=== PATIENT | female | born 1930 | race African-American/Black ===

== ENCOUNTER → 2017-02-05 | Outpatient (CLI) | payer MEDICARE, MEDICAID ==
[~2017-02-05] MED LIST: AMLO5TAB88 PO; APIX5TAB PO; ASPI-1035 PO; ATOR20TA65 PO; BENA40TA3 PO; CLOP75TA33 PO; GABA-531 PO; HYDR-4134 PO; HYDR25TA PO; LEVO75TA7 PO; MOMETASONE; POTA20TA82 PO
== END | disposition home or self-care (01) ==
LOC: MAMMO 08:57
PROVIDERS: ATTEND Specialist
DX: Z12.31 Encounter for screening mammogram for malignant neoplasm of breast (principal)
CPT/HCPCS: G0202

== ENCOUNTER → 2017-03-19 | Outpatient (CLI) | payer MEDICARE, MEDICAID ==
[~2017-03-19] MED LIST changes: -ASPI-1035 PO; +ASPI-1159 PO
== END | disposition home or self-care (01) ==
LOC: MAMMO 09:07
PROVIDERS: ATTEND Specialist
DX: R92.8 Other abnormal and inconclusive findings on diagnostic imaging of breast (principal); N63 Unspecified lump in breast
CPT/HCPCS: 76641; G0206

== ENCOUNTER → 2018-02-12 | Outpatient (CLI) | payer MEDICARE, MEDICAID ==
[~2018-02-12] MED LIST changes: +FLUT15.88 NS; +TRIA1TAB94 PO
== END | disposition home or self-care (01) ==
LOC: MAMMO 08:25
PROVIDERS: ATTEND Specialist
DX: Z12.31 Encounter for screening mammogram for malignant neoplasm of breast (principal)
CPT/HCPCS: 77067

== ENCOUNTER 2021-03-04 16:58 | Inpatient (IN) | payer MEDICARE, MEDICAID ==
[~2021-03-04] VITALS: Ht 165.1 cm; Wt 67.2 kg
[~2021-03-04 16:58] MED LIST changes: -ASPI-1159 PO; +ASPI-1497 PO; -BENA40TA3 PO; +BENA40TA9 PO; +FLUT15.844 NS; -FLUT15.88 NS; -GABA-531 PO; +GABA-532 PO
[2021-03-04 19:08] LABS: CHLORIDE 111 mEq/L (98-107)
[2021-03-04 19:54] LABS: MEAN CORPUSCULAR HEMOGLOBIN 20.6 pg (28.0-32.0); MEAN CORPUSCULAR VOLUME 67.2 fL (81.0-99.0); MEAN PLATELET VOLUME 6.9 fl (7.4-10.4); PLATELET 194 x1000/uL (130-400); RED BLOOD CELL COUNT 2.34 mill/uL (4.2-5.4)
[2021-03-04 20:00] LABS: HEMATOCRIT. 15.7 % (36.0-48.0); HEMOGLOBIN. 4.8 g/dL (12.0-16.0)
[2021-03-04] MEDS ORDERED: PANTOPRAZOLE SODIUM 40 MG/VIAL IV NR (20:30)
[2021-03-04 20:34] LABS: PLATELET ESTIMATE NORMAL
[2021-03-04] MEDS ORDERED: PANTOPRAZOLE 80 MG in SODIUM CHLORIDE 0.9% 100 ML IV SCH (21:00)
[2021-03-04] MEDS ORDERED: IPRATROPIUM/ALBUTEROL 0.5-3(2.5)MG/3ML NEB NEB PRN (22:30)
[2021-03-04] MEDS ORDERED: DEXTROSE 50% WATER 50ML SYRINGE IV PRN (22:30)
[2021-03-04] MEDS ORDERED: MAGNESIUM/ALUMINUM HYDROXIDE/SIMETHICONE 30ML UDC PO PRN (22:30)
[2021-03-04] MEDS ORDERED: CLONIDINE 0.1MG TABLET PO PRN (22:30)
[2021-03-04] MEDS ORDERED: ONDANSETRON HCL 4MG/2ML INJ IV PRN (22:30)
[2021-03-04] MEDS ORDERED: ACETAMINOPHEN 325MG TABLET PO PRN ×3 (22:30→22:45)
[2021-03-04] MEDS ORDERED: DOCUSATE SODIUM 100MG CAPSULE PO PRN (22:30)
[2021-03-04] MEDS ORDERED: NITROGLYCERIN 0.4MG TABLET SL SL PRN (22:30)
[2021-03-04] MEDS ORDERED: GUAIFENESIN 200MG/10ML SUGAR FREE UDC PO PRN (22:30)
[2021-03-04] MEDS ORDERED: SODIUM POLYSTYRENE SULFONATE 15 G/60 ML BOT PO SCH (23:00)
[2021-03-04 23:16] LABS: T4 FREE 1.1 ng/dL (0.76-1.46)
[2021-03-04 23:17] LABS: CLARITY URINE CLEAR (CLEAR); COLOR URINE YELLOW (YELLOW); KETONES URINE NEGATIVE (NEGATIVE); LEUKOCYTE ESTERASE URINE TRACE (NEGATIVE); NITRITE URINE NEGATIVE (NEGATIVE); OCCULT BLOOD URINE 1+ (NEGATIVE); PH URINE 7.5 (4.5-8.0); PROTEIN URINE NEGATIVE (NEGATIVE); SPECIFIC GRAVITY URINE 1.012 (1.005-1.030); UROBILINOGEN URINE 0.2 E.U./dL (0.2-1.0)
[2021-03-04 23:28] LABS: FOLIC ACID (FOLATE) SERUM 15.6 ng/mL (>5.38)
[2021-03-04 23:36] LABS: *BARBITURATES SCREEN URINE NEGATIVE (NEGATIVE); *COCAINE SCREEN URINE NEGATIVE (NEGATIVE); CANNABINOID URINE SCREEN NEGATIVE (NEGATIVE); OPIATES URINE SCREEN NEGATIVE (NEGATIVE); PHENCYCLIDINE URINE SCREEN NEGATIVE (NEGATIVE)
[2021-03-04 23:37] LABS: *AMPHETAMINES SCREEN URINE NEGATIVE (NEGATIVE); *BENZODIAZEPINES SCREEN URINE NEGATIVE (NEGATIVE); METHADONE URINE SCREEN NEGATIVE (NEGATIVE)
[2021-03-05] VITALS (14 sets, daily range): BP systolic 133–164; BP diastolic 53–91
[2021-03-05] MEDS: DILTIAZEM HCL 60MG TABLET PO SCH ×5 (03:43→23:36)
[2021-03-05] MEDS: DEXT 5%/0.45% NACL 1000ML 1,000 ML IV SCH ×3 (05:10→23:36)
[2021-03-05 06:11] LABS: BASOPHILS % 0.4 % (0.0-2.0); EOSINOPHILS % 1.8 % (0.0-5.0); HEMATOCRIT. 22.1 % (36.0-48.0); LYMPHOCYTES % 23.3 % (20.0-50.0); MEAN CORPUSCULAR HEMOGLOBIN 23.4 pg (28.0-32.0); MEAN CORPUSCULAR VOLUME 73.2 fL (81.0-99.0); MEAN PLATELET VOLUME 8.1 fl (7.4-10.4); MONOCYTES % 6.5 % (2.0-8.0); PLATELET 164 x1000/uL (130-400); RED BLOOD CELL COUNT 3.02 mill/uL (4.2-5.4); RED CELL DISTRIBUTION WIDTH 23.5 % (11.6-14.6)
[2021-03-05 06:15] LABS: CHLORIDE 107 mEq/L (98-107)
[2021-03-05 06:22] LABS: PHOSPHORUS 2.7 mg/dL (2.5-4.9)
[2021-03-05 06:23] LABS: LDL CHOLESTEROL 34 mg/dL (5-100)
[2021-03-05 06:24] LABS: CREATINE KINASE 67 IU/L (26-192); CREATINE KINASE MB FRACTION 1.3 ng/mL (0.5-3.6); HDL CHOLESTEROL 63 mg/dL (40-59)
[2021-03-05] MEDS ORDERED: AMLODIPINE 10MG TABLET PO SCH (09:00)
[2021-03-05] MEDS: INSULIN LISPRO 100 UNITS/ML SUBCUT SCH ×4 (12:00→20:55)
[2021-03-05] MEDS: BLOOD SUGAR DIAGNOSTIC STRIP TEST SCH ×4 (12:00→20:55)
[2021-03-05] MEDS: SORBITOL 70% SOLN 30ML PO NR ×2 (13:48→20:16)
[2021-03-05] MEDS ORDERED: SORBITOL 70% SOLN 30ML PO NR (14:00)
[2021-03-05] MEDS ORDERED: DEXT 5%/0.9% NACL 1,000 ML IV SCH (17:15)
[2021-03-05] MEDS ORDERED: ONDANSETRON HCL 4MG/2ML INJ IV PRN (17:15)
[2021-03-05] MEDS ORDERED: SUCRALFATE 1 G/10 ML UDC PO SCH (17:30)
[2021-03-05] MEDS ORDERED: METOCLOPRAMIDE HCL 10MG/2ML VIAL IV SCH (17:30)
[2021-03-05 17:43] LABS: HEMATOCRIT 28.9 % (36.0-48.0); HEMOGLOBIN 9.7 g/dL (12.0-16.0)
[2021-03-05 17:50] LABS: INR 1.1
[2021-03-05 17:58] LABS: CREATINE KINASE MB FRACTION 1.9 ng/mL (0.5-3.6)
[2021-03-05] MEDS: PANTOPRAZOLE SODIUM 40 MG/VIAL IV SCH (18:43)
[2021-03-05] MEDS: ATORVASTATIN CALCIUM 10MG TABLET PO SCH (20:16)
[2021-03-05] MEDS: ZOLPIDEM TARTRATE 5MG TABLET PO PRN (23:36)
[2021-03-06] VITALS (12 sets, daily range): BP systolic 116–165; BP diastolic 51–71
[2021-03-06] MEDS: DILTIAZEM HCL 60MG TABLET PO SCH ×4 (05:32→23:27)
[2021-03-06 05:57] LABS: INR 1.1; PROTHROMBIN TIME 11.7 sec (9.6-11.0)
[2021-03-06 06:19] LABS: HEMATOCRIT. 34.9 % (36.0-48.0); MEAN CORPUSCULAR HEMOGLOBIN 24.2 pg (28.0-32.0); MEAN CORPUSCULAR VOLUME 76.4 fL (81.0-99.0); MEAN PLATELET VOLUME 8.4 fl (7.4-10.4); PLATELET 188 x1000/uL (130-400); RED BLOOD CELL COUNT 4.57 mill/uL (4.2-5.4); RED CELL DISTRIBUTION WIDTH 22.7 % (11.6-14.6)
[2021-03-06] MEDS: BLOOD SUGAR DIAGNOSTIC STRIP TEST SCH ×4 (07:30→21:00)
[2021-03-06] MEDS: INSULIN LISPRO 100 UNITS/ML SUBCUT SCH ×4 (08:00→21:00)
[2021-03-06] MEDS: PANTOPRAZOLE SODIUM 40 MG/VIAL IV SCH ×2 (08:56→18:44)
[2021-03-06] MEDS: IRON SUCROSE COMPLEX 100 MG/5 ML ML IV SCH (10:58)
[2021-03-06 14:38] LABS: PLATELET ESTIMATE NORMAL
[2021-03-06] MEDS: GABAPENTIN 100MG CAPSULE PO SCH ×2 (16:00→22:12)
[2021-03-06] MEDS ORDERED: MIDAZOLAM HCL 5 MG/5 ML VIAL IV PRN (16:19)
[2021-03-06] MEDS ORDERED: MIDAZOLAM HCL 5 MG/5 ML VIAL ONE (16:25)
[2021-03-06] MEDS ORDERED: FENTANYL CITRATE/PF 50MCG/ML 2ML VIAL ONE (16:26)
[2021-03-06] MEDS ORDERED: NA PHOS,M-B/NA PHOS,DI-BA ENEMA 118ML PR NR (18:00)
[2021-03-06] MEDS ORDERED: SORBITOL 70% SOLN 30ML PO NR (21:00)
[2021-03-06] MEDS: ATORVASTATIN CALCIUM 10MG TABLET PO SCH (22:12)
[2021-03-07] VITALS (12 sets, daily range): BP systolic 104–131; BP diastolic 57–78
[2021-03-07] MEDS: DILTIAZEM HCL 60MG TABLET PO SCH ×3 (05:07→18:41)
[2021-03-07] MEDS: GABAPENTIN 100MG CAPSULE PO SCH ×3 (05:07→21:53)
[2021-03-07] MEDS: BLOOD SUGAR DIAGNOSTIC STRIP TEST SCH ×4 (07:59→21:00)
[2021-03-07] MEDS: INSULIN LISPRO 100 UNITS/ML SUBCUT SCH ×4 (07:59→21:00)
[2021-03-07] MEDS: PANTOPRAZOLE SODIUM 40 MG/VIAL IV SCH ×2 (08:40→18:40)
[2021-03-07] MEDS ORDERED: SORBITOL 70% SOLN 30ML PO NR (10:00)
[2021-03-07] MEDS: IRON SUCROSE COMPLEX 100 MG/5 ML ML IV SCH (10:03)
[2021-03-07 10:38] LABS: HEMATOCRIT. 31.4 % (36.0-48.0); HEMOGLOBIN. 10.2 g/dL (12.0-16.0); MEAN CORPUSCULAR HEMOGLOBIN 24.2 pg (28.0-32.0); MEAN CORPUSCULAR VOLUME 74.3 fL (81.0-99.0); PLATELET 156 x1000/uL (130-400); RED BLOOD CELL COUNT 4.22 mill/uL (4.2-5.4); RED CELL DISTRIBUTION WIDTH 24.4 % (11.6-14.6)
[2021-03-07 11:16] LABS: INR 1.2; PROTHROMBIN TIME 12.4 sec (9.6-11.0)
[2021-03-07] MEDS ORDERED: NA PHOS,M-B/NA PHOS,DI-BA ENEMA 118ML PR NR (12:00)
[2021-03-07] MEDS ORDERED: POTASSIUM CHLORIDE INJ 40 MEQ in DEXT 5% WATER 250 ML IV ONE (13:00)
[2021-03-07 13:34] LABS: NUCLEATED RED BLOOD CELLS 1 /100 WBC; PLATELET ESTIMATE NORMAL
[2021-03-07] MEDS ORDERED: MIDAZOLAM HCL 2 MG/2 ML VIAL IV PRN (16:23)
[2021-03-07] MEDS ORDERED: MIDAZOLAM HCL 5 MG/5 ML VIAL ONE (16:25)
[2021-03-07] MEDS ORDERED: FENTANYL CITRATE/PF 50MCG/ML 2ML VIAL ONE (16:25)
[2021-03-07] MEDS: ATORVASTATIN CALCIUM 10MG TABLET PO SCH (21:53)
[2021-03-08] VITALS (13 sets, daily range): BP systolic 119–135; BP diastolic 56–72
[2021-03-08] MEDS: DILTIAZEM HCL 60MG TABLET PO SCH ×5 (00:26→23:15)
[2021-03-08] MEDS: GABAPENTIN 100MG CAPSULE PO SCH ×3 (06:03→21:31)
[2021-03-08] MEDS: INSULIN LISPRO 100 UNITS/ML SUBCUT SCH ×4 (06:31→21:00)
[2021-03-08] MEDS: BLOOD SUGAR DIAGNOSTIC STRIP TEST SCH ×4 (06:32→21:30)
[2021-03-08] MEDS: PANTOPRAZOLE SODIUM 40 MG/VIAL IV SCH ×2 (08:59→17:14)
[2021-03-08] MEDS: IRON SUCROSE COMPLEX 100 MG/5 ML ML IV SCH (09:00)
[2021-03-08] MEDS: TRAMADOL 50MG TABLET PO PRN ×2 (14:49→20:24)
[2021-03-08] MEDS: DEXT 5%/0.9% NACL 1,000 ML IV SCH (16:46)
[2021-03-08] MEDS: ATORVASTATIN CALCIUM 10MG TABLET PO SCH (20:25)
[2021-03-09] VITALS (12 sets, daily range): BP systolic 111–138; BP diastolic 43–68
[2021-03-09] MEDS: DEXT 5%/0.9% NACL 1,000 ML IV SCH ×2 (04:53→18:55)
[2021-03-09] MEDS: DILTIAZEM HCL 60MG TABLET PO SCH ×3 (05:33→17:47)
[2021-03-09] MEDS: GABAPENTIN 100MG CAPSULE PO SCH ×3 (05:33→22:28)
[2021-03-09 06:13] LABS: HEMATOCRIT. 31.3 % (36.0-48.0); HEMOGLOBIN. 10.3 g/dL (12.0-16.0); MEAN PLATELET VOLUME 9.1 fl (7.4-10.4); PLATELET 134 x1000/uL (130-400); RED BLOOD CELL COUNT 4.12 mill/uL (4.2-5.4)
[2021-03-09] MEDS: BLOOD SUGAR DIAGNOSTIC STRIP TEST SCH ×4 (07:31→20:53)
[2021-03-09] MEDS: INSULIN LISPRO 100 UNITS/ML SUBCUT SCH ×4 (07:32→21:00)
[2021-03-09] MEDS: TRAMADOL 50MG TABLET PO PRN (08:41)
[2021-03-09] MEDS: PANTOPRAZOLE SODIUM 40 MG/VIAL IV SCH ×2 (09:37→17:46)
[2021-03-09] MEDS: IRON SUCROSE COMPLEX 100 MG/5 ML ML IV SCH (09:38)
[2021-03-09] MEDS ORDERED: LEVOFLOXACIN 500MG PREMIX 100 ML IV NR (12:00)
[2021-03-09 12:15] LABS: PLATELET ESTIMATE NORMAL
[2021-03-09] MEDS: METRONIDAZOLE 500 MG PREMIX 100 ML IV SCH ×2 (12:35→20:21)
[2021-03-09] MEDS: ATORVASTATIN CALCIUM 10MG TABLET PO SCH (21:00)
[2021-03-09] MEDS: ZOLPIDEM TARTRATE 5MG TABLET PO PRN (22:28)
[2021-03-10] VITALS (12 sets, daily range): BP systolic 112–136; BP diastolic 41–66
[2021-03-10] MEDS: DILTIAZEM HCL 60MG TABLET PO SCH ×5 (01:12→23:37)
[2021-03-10] MEDS: METRONIDAZOLE 500 MG PREMIX 100 ML IV SCH ×3 (04:02→21:08)
[2021-03-10 06:17] LABS: HEMATOCRIT. 28.2 % (36.0-48.0); HEMOGLOBIN. 9.4 g/dL (12.0-16.0); MEAN CORPUSCULAR HEMOGLOBIN 25.7 pg (28.0-32.0); MEAN CORPUSCULAR VOLUME 77.3 fL (81.0-99.0); MEAN PLATELET VOLUME 9.1 fl (7.4-10.4); PLATELET 108 x1000/uL (130-400); RED BLOOD CELL COUNT 3.64 mill/uL (4.2-5.4); RED CELL DISTRIBUTION WIDTH 26.1 % (11.6-14.6)
[2021-03-10] MEDS: GABAPENTIN 100MG CAPSULE PO SCH ×3 (06:17→21:09)
[2021-03-10] MEDS: BLOOD SUGAR DIAGNOSTIC STRIP TEST SCH ×4 (07:30→21:08)
[2021-03-10] MEDS: INSULIN LISPRO 100 UNITS/ML SUBCUT SCH ×4 (08:00→21:00)
[2021-03-10] MEDS: IRON SUCROSE COMPLEX 100 MG/5 ML ML IV SCH (09:01)
[2021-03-10] MEDS: PANTOPRAZOLE SODIUM 40 MG/VIAL IV SCH ×2 (09:01→17:38)
[2021-03-10] MEDS: DEXT 5%/0.9% NACL 1,000 ML IV SCH ×2 (10:49→21:09)
[2021-03-10 17:10] LABS: PLATELET ESTIMATE DECREASED
[2021-03-10] MEDS: ATORVASTATIN CALCIUM 10MG TABLET PO SCH (21:14)
[2021-03-11] VITALS (16 sets, daily range): BP systolic 119–141; BP diastolic 43–70
[2021-03-11] MEDS: METRONIDAZOLE 500 MG PREMIX 100 ML IV SCH ×3 (04:42→20:49)
[2021-03-11] MEDS: GABAPENTIN 100MG CAPSULE PO SCH ×3 (05:38→20:54)
[2021-03-11] MEDS: DILTIAZEM HCL 60MG TABLET PO SCH ×4 (05:38→23:56)
[2021-03-11 06:23] LABS: HEMOGLOBIN. 9.6 g/dL (12.0-16.0); MEAN CORPUSCULAR HEMOGLOBIN 25.7 pg (28.0-32.0); MEAN CORPUSCULAR VOLUME 77.4 fL (81.0-99.0); MEAN PLATELET VOLUME 9.1 fl (7.4-10.4); PLATELET 119 x1000/uL (130-400); RED BLOOD CELL COUNT 3.75 mill/uL (4.2-5.4); RED CELL DISTRIBUTION WIDTH 25.8 % (11.6-14.6)
[2021-03-11] MEDS: BLOOD SUGAR DIAGNOSTIC STRIP TEST SCH ×4 (07:45→20:49)
[2021-03-11] MEDS: INSULIN LISPRO 100 UNITS/ML SUBCUT SCH ×4 (07:45→20:49)
[2021-03-11] MEDS: PANTOPRAZOLE SODIUM 40 MG/VIAL IV SCH ×2 (08:20→17:00)
[2021-03-11] MEDS ORDERED: POTASSIUM CHLORIDE 20MEQ TABLET SR PO NR (09:30)
[2021-03-11] MEDS: DEXT 5%/0.45% NACL 1000ML 1,000 ML IV SCH ×2 (10:01→23:54)
[2021-03-11 10:48] LABS: PLATELET ESTIMATE SLIGHTLY DECREASED
[2021-03-11] MEDS: LEVOFLOXACIN 250MG PREMIX 50 ML IV SCH (12:09)
[2021-03-11] MEDS: ATORVASTATIN CALCIUM 10MG TABLET PO SCH (20:54)
[2021-03-12] VITALS (10 sets, daily range): BP systolic 122–151; BP diastolic 49–72
[2021-03-12] MEDS: METRONIDAZOLE 500 MG PREMIX 100 ML IV SCH ×3 (03:57→20:43)
[2021-03-12] MEDS: DILTIAZEM HCL 60MG TABLET PO SCH ×4 (05:39→23:54)
[2021-03-12] MEDS: GABAPENTIN 100MG CAPSULE PO SCH ×3 (05:39→22:04)
[2021-03-12] MEDS: BLOOD SUGAR DIAGNOSTIC STRIP TEST SCH ×4 (07:44→21:05)
[2021-03-12] MEDS: INSULIN LISPRO 100 UNITS/ML SUBCUT SCH ×4 (07:44→21:00)
[2021-03-12] MEDS: PANTOPRAZOLE SODIUM 40 MG/VIAL IV SCH ×2 (08:49→17:05)
[2021-03-12] MEDS: MORPHINE SULFATE 2 MG/ML CPJ (NOT FOR IM USE) IV PRN (12:18)
[2021-03-12 13:30] LABS: HEMATOCRIT. 31.6 % (36.0-48.0); HEMOGLOBIN. 10.3 g/dL (12.0-16.0); MEAN CORPUSCULAR HEMOGLOBIN 25.4 pg (28.0-32.0); MEAN PLATELET VOLUME 8.8 fl (7.4-10.4); PLATELET 155 x1000/uL (130-400); RED BLOOD CELL COUNT 4.05 mill/uL (4.2-5.4); RED CELL DISTRIBUTION WIDTH 26.6 % (11.6-14.6)
[2021-03-12 14:05] LABS: PLATELET ESTIMATE NORMAL
[2021-03-12] MEDS: DEXT 5%/0.45% NACL 1000ML 1,000 ML IV SCH (17:10)
[2021-03-12] MEDS: ATORVASTATIN CALCIUM 10MG TABLET PO SCH (20:43)
[2021-03-13] VITALS (13 sets, daily range): BP systolic 118–148; BP diastolic 50–83
[2021-03-13] MEDS: DEXT 5%/0.45% NACL 1000ML 1,000 ML IV SCH ×2 (01:28→15:29)
[2021-03-13] MEDS: METRONIDAZOLE 500 MG PREMIX 100 ML IV SCH ×3 (04:33→21:00)
[2021-03-13] MEDS: GABAPENTIN 100MG CAPSULE PO SCH ×3 (05:41→21:37)
[2021-03-13] MEDS: DILTIAZEM HCL 60MG TABLET PO SCH ×3 (05:41→17:54)
[2021-03-13 06:18] LABS: PHOSPHORUS 1.4 mg/dL (2.5-4.9)
[2021-03-13] MEDS: BLOOD SUGAR DIAGNOSTIC STRIP TEST SCH ×4 (07:30→21:10)
[2021-03-13 07:50] LABS: HEMATOCRIT. 29.2 % (36.0-48.0); MEAN CORPUSCULAR HEMOGLOBIN 24.3 pg (28.0-32.0); MEAN CORPUSCULAR VOLUME 79.1 fL (81.0-99.0); MEAN PLATELET VOLUME 9.1 fl (7.4-10.4); PLATELET 148 x1000/uL (130-400); RED CELL DISTRIBUTION WIDTH 26.9 % (11.6-14.6)
[2021-03-13] MEDS: INSULIN LISPRO 100 UNITS/ML SUBCUT SCH ×4 (08:00→21:00)
[2021-03-13] MEDS: PANTOPRAZOLE SODIUM 40 MG/VIAL IV SCH ×2 (08:44→17:05)
[2021-03-13] MEDS ORDERED: POTASSIUM PHOS,M-BASIC-D-BASIC 30 MMOL in SODIUM CHLORIDE 0.9% 500 ML IV SCH (12:00)
[2021-03-13] MEDS ORDERED: LIDOCAINE HCL 1% 20ML VIAL (Pyxis) INJ ONE (14:24)
[2021-03-13 15:20] LABS: PLATELET ESTIMATE NORMAL
[2021-03-13] MEDS: LEVOFLOXACIN 250MG PREMIX 50 ML IV SCH (15:29)
[2021-03-13] MEDS: ATORVASTATIN CALCIUM 10MG TABLET PO SCH (21:32)
[2021-03-14] VITALS (13 sets, daily range): BP systolic 108–147; BP diastolic 56–90
[2021-03-14] MEDS: MORPHINE SULFATE 2 MG/ML CPJ (NOT FOR IM USE) IV PRN ×2 (04:41→15:12)
[2021-03-14] MEDS: METRONIDAZOLE 500 MG PREMIX 100 ML IV SCH (04:43)
[2021-03-14] MEDS: DEXT 5%/0.45% NACL 1000ML 1,000 ML IV SCH ×2 (04:43→17:25)
[2021-03-14] MEDS: GABAPENTIN 100MG CAPSULE PO SCH ×3 (07:05→22:02)
[2021-03-14 07:06] LABS: HEMATOCRIT. 30.6 % (36.0-48.0); HEMOGLOBIN. 9.8 g/dL (12.0-16.0); MEAN CORPUSCULAR HEMOGLOBIN 24.8 pg (28.0-32.0); MEAN CORPUSCULAR VOLUME 77.2 fL (81.0-99.0); MEAN PLATELET VOLUME 8.8 fl (7.4-10.4); PLATELET 160 x1000/uL (130-400); RED BLOOD CELL COUNT 3.96 mill/uL (4.2-5.4); RED CELL DISTRIBUTION WIDTH 27.6 % (11.6-14.6)
[2021-03-14] MEDS: DILTIAZEM HCL 60MG TABLET PO SCH ×4 (07:06→17:25)
[2021-03-14 07:22] LABS: PHOSPHORUS 2.4 mg/dL (2.5-4.9)
[2021-03-14] MEDS: INSULIN LISPRO 100 UNITS/ML SUBCUT SCH ×4 (07:51→21:00)
[2021-03-14] MEDS: BLOOD SUGAR DIAGNOSTIC STRIP TEST SCH ×3 (07:51→18:00)
[2021-03-14] MEDS: PANTOPRAZOLE SODIUM 40 MG/VIAL IV SCH ×2 (09:20→17:25)
[2021-03-14] MEDS ORDERED: POTASSIUM PHOS,M-BASIC-D-BASIC 20 MMOL in DEXT 5% WATER 243.3333 ML IV SCH (12:00)
[2021-03-14 12:53] LABS: PLATELET ESTIMATE NORMAL
[2021-03-14] MEDS ORDERED: TOTAL PARENTERAL NUTRITION 1,000 ML IV SCH (21:00)
[2021-03-14] MEDS: ATORVASTATIN CALCIUM 10MG TABLET PO SCH (22:00)
[2021-03-15] VITALS (11 sets, daily range): BP systolic 123–145; BP diastolic 53–80
[2021-03-15] MEDS: BLOOD SUGAR DIAGNOSTIC STRIP TEST SCH ×4 (00:48→17:49)
[2021-03-15] MEDS: DILTIAZEM HCL 60MG TABLET PO SCH ×4 (00:48→17:48)
[2021-03-15] MEDS: INSULIN LISPRO 100 UNITS/ML SUBCUT SCH ×4 (06:00→17:49)
[2021-03-15 06:22] LABS: HEMOGLOBIN. 9.3 g/dL (12.0-16.0); MEAN CORPUSCULAR HEMOGLOBIN 25.3 pg (28.0-32.0); MEAN CORPUSCULAR VOLUME 78.8 fL (81.0-99.0); MEAN PLATELET VOLUME 8.7 fl (7.4-10.4); PLATELET 178 x1000/uL (130-400); RED BLOOD CELL COUNT 3.67 mill/uL (4.2-5.4); RED CELL DISTRIBUTION WIDTH 27.7 % (11.6-14.6)
[2021-03-15] MEDS: GABAPENTIN 100MG CAPSULE PO SCH ×2 (06:41→14:19)
[2021-03-15] MEDS: PANTOPRAZOLE SODIUM 40 MG/VIAL IV SCH ×2 (08:38→17:48)
[2021-03-15] MEDS: DEXT 5%/0.45% NACL 1000ML 1,000 ML IV SCH (09:01)
[2021-03-15 14:14] LABS: PLATELET ESTIMATE NORMAL
[2021-03-15] MEDS ORDERED: POTASSIUM PHOS,M-BASIC-D-BASIC 20 MMOL in DEXTROSE 5% WATER 250 ML IV NR (15:00)
[2021-03-15] MEDS ORDERED: TOTAL PARENTERAL NUTRITION IV SCH (21:00)
== END 2021-03-15 23:44 | DRG 393 ==
LOC: ER 16:58 → 5EST 20:39 → SUPCPDRO 22:22 → ENRESERV 03-05 07:33
PROVIDERS: ADMIT Internal Medicine; ATTEND Internal Medicine
PROC: 30233N1 Transfusion of Nonautologous Red Blood Cells into Peripheral Vein, Percutaneous Approach (ICD-10-PCS; 2021-03-04)
PROC: 0DB68ZX Excision of Stomach, Via Natural or Artificial Opening Endoscopic, Diagnostic (ICD-10-PCS; 2021-03-06)
PROC: 0DBN8ZX Excision of Sigmoid Colon, Via Natural or Artificial Opening Endoscopic, Diagnostic (ICD-10-PCS; 2021-03-06)
PROC: 02HV33Z Insertion of Infusion Device into Superior Vena Cava, Percutaneous Approach (ICD-10-PCS; principal; 2021-03-13)
PROC: B5181ZA Fluoroscopy of Superior Vena Cava using Low Osmolar Contrast, Guidance (ICD-10-PCS; 2021-03-13)
PROC: B548ZZA Ultrasonography of Superior Vena Cava, Guidance (ICD-10-PCS; 2021-03-13)
DX: K55.9 Vascular disorder of intestine, unspecified (principal); N17.0 Acute kidney failure with tubular necrosis; R57.8 Other shock; E46 Unspecified protein-calorie malnutrition; I74.5 Embolism and thrombosis of iliac artery; K56.0 Paralytic ileus; R17 Unspecified jaundice; I50.30 Unspecified diastolic (congestive) heart failure; K63.5 Polyp of colon; D50.0 Iron deficiency anemia secondary to blood loss (chronic); E11.51 Type 2 diabetes mellitus with diabetic peripheral angiopathy without gangrene; E03.9 Hypothyroidism, unspecified; E87.5 Hyperkalemia; E11.65 Type 2 diabetes mellitus with hyperglycemia; I48.91 Unspecified atrial fibrillation; E78.00 Pure hypercholesterolemia, unspecified; E78.5 Hyperlipidemia, unspecified; E83.39 Other disorders of phosphorus metabolism; Z20.822 Contact with and (suspected) exposure to COVID-19; I11.0 Hypertensive heart disease with heart failure; I25.10 Atherosclerotic heart disease of native coronary artery without angina pectoris; R26.2 Difficulty in walking, not elsewhere classified; K44.9 Diaphragmatic hernia without obstruction or gangrene; Z79.01 Long term (current) use of anticoagulants; Z79.4 Long term (current) use of insulin; Z87.19 Personal history of other diseases of the digestive system; Z88.0 Allergy status to penicillin; Z88.8 Allergy status to other drugs, medicaments and biological substances; Z88.6 Allergy status to analgesic agent; Z79.899 Other long term (current) drug therapy; Z68.24 Body mass index [BMI] 24.0-24.9, adult; K29.70 Gastritis, unspecified, without bleeding
CPT/HCPCS: 36415; 36573; 71045; 74018; 74176; 80048; 80053; 80061; 80305; 81003; 82247; 82248; 82270; 82550; 82553; 82607; 82728; 82746; 82962; 83036; 83540; 83550; 83735; 83880; 84100; 84439; 84443; 84484; 85014; 85018; 85025; 85044; 85049; 85384; 86850; 86900; 86920; 87426; 88305; 88312; 88313; 93005; 93306; 93923; 97162; 97530; 99291; A6261; C1725; C9113; J1956; J2250; J2270; J2765; J3010; J3480; J3490; J7040; J7042; J7050; J7060; P9016

== ENCOUNTER 2021-06-20 05:40 | Inpatient (IN) | payer MEDICARE, MEDICAID ==
[~2021-06-20] VITALS: Ht 172.7 cm; Wt 68.7 kg
[2021-06-20] VITALS (9 sets, daily range): BP systolic 124–168; BP diastolic 60–91
[2021-06-20 11:23] LABS: BASOPHILS % 0.7 % (0.0-2.0); EOSINOPHILS % 2.2 % (0.0-5.0); HEMATOCRIT. 29.9 % (36.0-48.0); HEMOGLOBIN. 9.7 g/dL (12.0-16.0); LYMPHOCYTES % 15.3 % (20.0-50.0); MEAN CORPUSCULAR HEMOGLOBIN 26.4 pg (28.0-32.0); MEAN CORPUSCULAR VOLUME 81.8 fL (81.0-99.0); MEAN PLATELET VOLUME 7.6 fl (7.4-10.4); MONOCYTES % 12.1 % (2.0-8.0); NEUTROPHILS % 69.7 % (40.0-76.0); PLATELET 352 x1000/uL (130-400); RED BLOOD CELL COUNT 3.66 mill/uL (4.2-5.4); RED CELL DISTRIBUTION WIDTH 18.3 % (11.6-14.6)
[2021-06-20] MEDS ORDERED: CARSR60 MT (11:28)
[2021-06-20] MEDS ORDERED: DOCU-150 MT (11:28)
[2021-06-20] MEDS ORDERED: SPIR25TA6 MT (11:28)
[2021-06-20] MEDS ORDERED: CLON0.1T PO (11:28)
[2021-06-20] MEDS ORDERED: LEVO50TA8 PO (11:28)
[2021-06-20] MEDS ORDERED: MIDO5TAB4 MT (11:28)
[2021-06-20] MEDS ORDERED: FURO40TA5 MT (11:28)
[2021-06-20 11:30] LABS: CHLORIDE 101 mEq/L (98-107)
[2021-06-20] MEDS: DILTIAZEM HCL 60MG TABLET PO SCH ×3 (11:31→23:43)
[2021-06-20] MEDS: FUROSEMIDE 40MG/4ML VIAL IVP SCH (11:31)
[2021-06-20] MEDS ORDERED: CLONIDINE 0.1MG TABLET PO PRN (11:45)
[2021-06-20] MEDS ORDERED: IPRATROPIUM/ALBUTEROL 0.5-3(2.5)MG/3ML NEB HHN PRN (12:15)
[2021-06-20] MEDS: SPIRONOLACTONE 25MG TABLET PO SCH (12:28)
[2021-06-20] MEDS: MIDODRINE HCL 5MG TABLET PO SCH ×2 (14:00→21:10)
[2021-06-20 14:06] LABS: INR 1.2
[2021-06-20] MEDS ORDERED: DEXTROSE 50% WATER 50ML SYRINGE IV PRN (15:45)
[2021-06-20] MEDS: BLOOD SUGAR DIAGNOSTIC STRIP TEST SCH ×2 (16:50→21:10)
[2021-06-20] MEDS ORDERED: DOCUSATE SODIUM 100MG CAPSULE PO SCH (17:00)
[2021-06-20] MEDS: DOCUSATE SODIUM SUGAR FREE 100MG/10ML UDC NG SCH (17:05)
[2021-06-20] MEDS: INSULIN LISPRO 100 UNITS/ML SUBCUT SCH ×2 (17:20→21:00)
[2021-06-20] MEDS: PANTOPRAZOLE 40MG DR TABLET PO SCH (21:10)
[2021-06-21] VITALS (12 sets, daily range): BP systolic 135–161; BP diastolic 50–85
[2021-06-21] MEDS: MIDODRINE HCL 5MG TABLET PO SCH ×3 (06:00→21:30)
[2021-06-21] MEDS: DILTIAZEM HCL 60MG TABLET PO SCH ×3 (06:03→17:09)
[2021-06-21] MEDS: BLOOD SUGAR DIAGNOSTIC STRIP TEST SCH ×4 (06:03→21:30)
[2021-06-21] MEDS: LEVOTHYROXINE SODIUM 75MCG TABLET PO SCH (06:03)
[2021-06-21] MEDS: INSULIN LISPRO 100 UNITS/ML SUBCUT SCH ×4 (06:21→21:00)
[2021-06-21] MEDS ORDERED: LEVOTHYROXINE SODIUM 50MCG TABLET PO SCH (06:50)
[2021-06-21 08:00] LABS: HEMATOCRIT. 29.4 % (36.0-48.0); HEMOGLOBIN. 9.4 g/dL (12.0-16.0); LYMPHOCYTES % 15.3 % (20.0-50.0); MEAN CORPUSCULAR HEMOGLOBIN 25.9 pg (28.0-32.0); MEAN CORPUSCULAR VOLUME 81.2 fL (81.0-99.0); MEAN PLATELET VOLUME 7.7 fl (7.4-10.4); MONOCYTES % 10.8 % (2.0-8.0); NEUTROPHILS % 70.9 % (40.0-76.0); PLATELET 330 x1000/uL (130-400); RED BLOOD CELL COUNT 3.63 mill/uL (4.2-5.4); RED CELL DISTRIBUTION WIDTH 18.1 % (11.6-14.6)
[2021-06-21 08:04] LABS: CHLORIDE 100 mEq/L (98-107)
[2021-06-21] MEDS: PANTOPRAZOLE 40MG DR TABLET PO SCH ×2 (08:18→21:30)
[2021-06-21] MEDS: SPIRONOLACTONE 25MG TABLET PO SCH (08:18)
[2021-06-21] MEDS: FUROSEMIDE 40MG/4ML VIAL IVP SCH (08:18)
[2021-06-21] MEDS: DOCUSATE SODIUM SUGAR FREE 100MG/10ML UDC NG SCH ×2 (08:18→11:49)
[2021-06-21 11:26] LABS: BG BASE EXCESS 15.8 mmol/L (-2.0-2.0); BG CARBOXYHEMOGLOBIN 0.3 % (0.5-1.5); BG FRACTION INSPIRED OXYGEN 24; BG HCO3 ACT 43.6 mmol/L (22.0-26.0); BG METHEMOGLOBIN 0.3 % (0.0-1.5); BG OXYHEMOGLOBIN 93.4 % (94.0-97.0); BG PCO2 73.6 mmHg (35.0-45.0); BG PO2 77.7 mmHg (75.0-100.0); BG SAMPLE SITE LEFT RADIAL; BG TOTAL HEMOGLOBIN 10.4 g/dL (12.0-18.0); BG VENT MODE NASAL CANNULA
[2021-06-21] MEDS ORDERED: LIDOCAINE HCL 1% 20ML VIAL (Pyxis) INJ ONE (13:13)
[2021-06-22] VITALS (9 sets, daily range): BP systolic 126–158; BP diastolic 53–85
[2021-06-22] MEDS: DILTIAZEM HCL 60MG TABLET PO SCH ×5 (00:18→23:45)
[2021-06-22] MEDS: BLOOD SUGAR DIAGNOSTIC STRIP TEST SCH ×4 (05:56→21:24)
[2021-06-22] MEDS: LEVOTHYROXINE SODIUM 75MCG TABLET PO SCH (05:56)
[2021-06-22] MEDS: MIDODRINE HCL 5MG TABLET PO SCH ×3 (05:59→21:24)
[2021-06-22] MEDS: INSULIN LISPRO 100 UNITS/ML SUBCUT SCH ×4 (07:20→21:00)
[2021-06-22] MEDS: DOCUSATE SODIUM SUGAR FREE 100MG/10ML UDC NG SCH ×2 (07:29→17:00)
[2021-06-22] MEDS: PANTOPRAZOLE 40MG DR TABLET PO SCH ×2 (09:00→21:24)
[2021-06-22] MEDS: SPIRONOLACTONE 25MG TABLET PO SCH (09:00)
[2021-06-22] MEDS: FUROSEMIDE 40MG/4ML VIAL IVP SCH (09:06)
[2021-06-22] MEDS: IPRATROPIUM/ALBUTEROL 0.5-3(2.5)MG/3ML NEB HHN SCH ×2 (12:30→21:54)
[2021-06-22] MEDS ORDERED: MEROPENEM 500 MG in SODIUM CHLORIDE 0.9% 50 ML IV SCH (14:00)
[2021-06-22] MEDS: MEROPENEM 500MG in NORMAL SALINE 50ML IV SCH ×2 (14:35→22:24)
[2021-06-22] MEDS ORDERED: LIDOCAINE HCL/EPINEPHRINE 1%-EPI 1:100,000 20 ML VIAL ONE (15:33)
[2021-06-22] MEDS ORDERED: VANCOMYCIN HCL 1 GM/VIAL ONE (15:34)
[2021-06-22] MEDS ORDERED: POLYMYXIN B SULFATE 500000 UNITS/VIAL ONE (15:34)
[2021-06-22] MEDS ORDERED: BACITRACIN 15GM TUBE TOP ONE (15:35)
[2021-06-22] MEDS ORDERED: MIDAZOLAM HCL 2 MG/2 ML VIAL ONE ×2 (15:55→17:12)
[2021-06-22] MEDS ORDERED: FENTANYL CITRATE/PF 50MCG/ML 2ML VIAL ONE ×2 (15:55→17:11)
[2021-06-22] MEDS ORDERED: PROPOFOL 200MG/20ML VIAL IV ONE ×2 (15:55→17:12)
[2021-06-22] MEDS ORDERED: CLINDAMYCIN 900 MG PREMIX 50 ML IV ONE (16:03)
[2021-06-22] MEDS ORDERED: ONDANSETRON HCL 4MG/2ML INJ ONE ×2 (16:15→17:14)
[2021-06-22] MEDS ORDERED: DEXAMETHASONE 4MG/ML 1ML VIAL ONE ×2 (16:15→17:14)
[2021-06-22] MEDS ORDERED: PHENYLEPHRINE HCL 10 MG/ML 1ML (IV VIAL) IV ONE (16:16)
[2021-06-22] MEDS ORDERED: ROPIVACAINE HCL 10MG/ML 20 ML VIAL EPI ONE (16:27)
[2021-06-22] MEDS ORDERED: NEOSTIGMINE METHYLSULFATE 1MG/ML 10 ML VIAL ONE (17:11)
[2021-06-22] MEDS ORDERED: ROCURONIUM BROMIDE 10MG/ML VIAL 5ML IV ONE (17:11)
[2021-06-22] MEDS ORDERED: GLYCOPYRROLATE 0.2 MG/ML 2ML VIAL ONE (17:12)
[2021-06-22 18:30] LABS: BG BASE EXCESS 14.1 mmol/L (-2.0-2.0); BG CARBOXYHEMOGLOBIN 0.6 % (0.5-1.5); BG DEOXYHEMOGLOBIN 9.1 % (0.0-5.0); BG FRACTION INSPIRED OXYGEN 60; BG HCO3 ACT 42.2 mmol/L (22.0-26.0); BG METHEMOGLOBIN 0.3 % (0.0-1.5); BG OXYGEN SATURATION 90.8 % (92.0-98.5); BG PCO2 78.7 mmHg (35.0-45.0); BG PH 7.347 (7.350-7.450); BG PO2 69.7 mmHg (75.0-100.0); BG TOTAL HEMOGLOBIN 9.6 g/dL (12.0-18.0); BG VENT MODE MASK - SIMPLE
[2021-06-23] VITALS (12 sets, daily range): BP systolic 130–157; BP diastolic 50–86
[2021-06-23] MEDS: MIDODRINE HCL 5MG TABLET PO SCH ×3 (06:00→21:34)
[2021-06-23] MEDS: LEVOTHYROXINE SODIUM 75MCG TABLET PO SCH (06:12)
[2021-06-23] MEDS: BLOOD SUGAR DIAGNOSTIC STRIP TEST SCH ×4 (06:13→21:16)
[2021-06-23] MEDS: DILTIAZEM HCL 60MG TABLET PO SCH ×3 (06:13→17:10)
[2021-06-23] MEDS: INSULIN LISPRO 100 UNITS/ML SUBCUT SCH ×4 (07:20→21:00)
[2021-06-23] MEDS: IPRATROPIUM/ALBUTEROL 0.5-3(2.5)MG/3ML NEB HHN SCH ×2 (08:30→12:20)
[2021-06-23 09:06] LABS: CHLORIDE 104 mEq/L (98-107)
[2021-06-23 09:12] LABS: BASOPHILS % 0.9 % (0.0-2.0); EOSINOPHILS % 2.3 % (0.0-5.0); HEMATOCRIT. 27.2 % (36.0-48.0); HEMOGLOBIN. 8.5 g/dL (12.0-16.0); LYMPHOCYTES % 12.3 % (20.0-50.0); MEAN CORPUSCULAR HEMOGLOBIN 25.9 pg (28.0-32.0); MEAN CORPUSCULAR VOLUME 82.6 fL (81.0-99.0); MEAN PLATELET VOLUME 7.6 fl (7.4-10.4); MONOCYTES % 11.1 % (2.0-8.0); NEUTROPHILS % 73.4 % (40.0-76.0); PLATELET 339 x1000/uL (130-400); RED BLOOD CELL COUNT 3.29 mill/uL (4.2-5.4); RED CELL DISTRIBUTION WIDTH 18.1 % (11.6-14.6)
[2021-06-23] MEDS: MEROPENEM 500MG in NORMAL SALINE 50ML IV SCH ×2 (09:14→21:02)
[2021-06-23] MEDS: PANTOPRAZOLE 40MG DR TABLET PO SCH ×2 (09:15→21:02)
[2021-06-23] MEDS: FUROSEMIDE 40MG/4ML VIAL IVP SCH (09:15)
[2021-06-23] MEDS: DOCUSATE SODIUM SUGAR FREE 100MG/10ML UDC NG SCH ×2 (09:15→17:05)
[2021-06-23] MEDS: SPIRONOLACTONE 25MG TABLET PO SCH (09:15)
[2021-06-24] VITALS (12 sets, daily range): BP systolic 124–154; BP diastolic 50–69
[2021-06-24] MEDS: DILTIAZEM HCL 60MG TABLET PO SCH ×4 (00:03→17:41)
[2021-06-24] MEDS: IPRATROPIUM/ALBUTEROL 0.5-3(2.5)MG/3ML NEB HHN SCH ×4 (00:06→21:28)
[2021-06-24] MEDS: MIDODRINE HCL 5MG TABLET PO SCH ×3 (06:00→22:00)
[2021-06-24] MEDS: LEVOTHYROXINE SODIUM 75MCG TABLET PO SCH (06:32)
[2021-06-24 06:41] LABS: BASOPHILS % 0.7 % (0.0-2.0); EOSINOPHILS % 2.2 % (0.0-5.0); HEMATOCRIT. 28.7 % (36.0-48.0); HEMOGLOBIN. 8.9 g/dL (12.0-16.0); LYMPHOCYTES % 14.4 % (20.0-50.0); MEAN CORPUSCULAR HEMOGLOBIN 25.8 pg (28.0-32.0); MEAN CORPUSCULAR VOLUME 82.5 fL (81.0-99.0); MEAN PLATELET VOLUME 7.6 fl (7.4-10.4); MONOCYTES % 12.5 % (2.0-8.0); NEUTROPHILS % 70.2 % (40.0-76.0); PLATELET 288 x1000/uL (130-400); RED BLOOD CELL COUNT 3.47 mill/uL (4.2-5.4); RED CELL DISTRIBUTION WIDTH 18.1 % (11.6-14.6)
[2021-06-24] MEDS: BLOOD SUGAR DIAGNOSTIC STRIP TEST SCH ×4 (06:50→20:33)
[2021-06-24 07:05] LABS: CHLORIDE 104 mEq/L (98-107)
[2021-06-24] MEDS: INSULIN LISPRO 100 UNITS/ML SUBCUT SCH ×4 (07:14→21:00)
[2021-06-24] MEDS: FUROSEMIDE 40MG/4ML VIAL IVP SCH (09:09)
[2021-06-24] MEDS: DOCUSATE SODIUM SUGAR FREE 100MG/10ML UDC NG SCH ×2 (09:09→17:41)
[2021-06-24] MEDS: PANTOPRAZOLE 40MG DR TABLET PO SCH ×2 (09:09→20:18)
[2021-06-24] MEDS: SPIRONOLACTONE 25MG TABLET PO SCH (09:11)
[2021-06-24 14:44] LABS: BG BASE EXCESS 19.3 mmol/L (-2.0-2.0); BG CARBOXYHEMOGLOBIN 0.4 % (0.5-1.5); BG DEOXYHEMOGLOBIN 8.3 % (0.0-5.0); BG FRACTION INSPIRED OXYGEN 28; BG HCO3 ACT 47.1 mmol/L (22.0-26.0); BG METHEMOGLOBIN 0.3 % (0.0-1.5); BG OXYGEN SATURATION 91.6 % (92.0-98.5); BG PCO2 76.4 mmHg (35.0-45.0); BG PH 7.408 (7.350-7.450); BG PO2 68.5 mmHg (75.0-100.0); BG SAMPLE SITE RIGHT RADIAL; BG TOTAL HEMOGLOBIN 10.2 g/dL (12.0-18.0); BG VENT MODE NASAL CANNULA
[2021-06-25] VITALS (12 sets, daily range): BP systolic 134–158; BP diastolic 51–73
[2021-06-25] MEDS: DILTIAZEM HCL 60MG TABLET PO SCH ×5 (00:35→23:17)
[2021-06-25] MEDS: IPRATROPIUM/ALBUTEROL 0.5-3(2.5)MG/3ML NEB HHN SCH ×4 (01:32→21:23)
[2021-06-25] MEDS: MIDODRINE HCL 5MG TABLET PO SCH ×3 (06:00→21:37)
[2021-06-25] MEDS: LEVOTHYROXINE SODIUM 75MCG TABLET PO SCH (06:29)
[2021-06-25] MEDS: BLOOD SUGAR DIAGNOSTIC STRIP TEST SCH ×4 (06:42→20:59)
[2021-06-25] MEDS: INSULIN LISPRO 100 UNITS/ML SUBCUT SCH ×4 (07:20→20:59)
[2021-06-25 07:44] LABS: BASOPHILS % 0.5 % (0.0-2.0); EOSINOPHILS % 2.2 % (0.0-5.0); HEMATOCRIT. 26.8 % (36.0-48.0); HEMOGLOBIN. 8.5 g/dL (12.0-16.0); MEAN CORPUSCULAR HEMOGLOBIN 25.9 pg (28.0-32.0); MEAN CORPUSCULAR VOLUME 81.2 fL (81.0-99.0); MEAN PLATELET VOLUME 7.2 fl (7.4-10.4); MONOCYTES % 10.4 % (2.0-8.0); NEUTROPHILS % 74.9 % (40.0-76.0); PLATELET 293 x1000/uL (130-400); RED CELL DISTRIBUTION WIDTH 17.5 % (11.6-14.6)
[2021-06-25 08:29] LABS: CHLORIDE 101 mEq/L (98-107)
[2021-06-25] MEDS: PANTOPRAZOLE 40MG DR TABLET PO SCH ×2 (08:46→21:39)
[2021-06-25] MEDS: DOCUSATE SODIUM SUGAR FREE 100MG/10ML UDC NG SCH ×2 (08:46→17:46)
[2021-06-25] MEDS: FUROSEMIDE 40MG/4ML VIAL IVP SCH (08:47)
[2021-06-25] MEDS: SPIRONOLACTONE 25MG TABLET PO SCH (08:47)
[2021-06-25] MEDS: BUDESONIDE 0.5MG/2ML NEB HHN SCH (21:23)
[2021-06-26] VITALS (12 sets, daily range): BP systolic 135–162; BP diastolic 55–83
[2021-06-26] MEDS: IPRATROPIUM/ALBUTEROL 0.5-3(2.5)MG/3ML NEB HHN SCH ×4 (03:21→21:50)
[2021-06-26] MEDS: MIDODRINE HCL 5MG TABLET PO SCH (05:40)
[2021-06-26 05:57] LABS: CHLORIDE 101 mEq/L (98-107)
[2021-06-26 06:11] LABS: BASOPHILS % 0.6 % (0.0-2.0); EOSINOPHILS % 2.3 % (0.0-5.0); HEMATOCRIT. 28.2 % (36.0-48.0); HEMOGLOBIN. 8.9 g/dL (12.0-16.0); LYMPHOCYTES % 14.2 % (20.0-50.0); MEAN CORPUSCULAR HEMOGLOBIN 25.7 pg (28.0-32.0); MEAN CORPUSCULAR VOLUME 81.4 fL (81.0-99.0); MEAN PLATELET VOLUME 7.5 fl (7.4-10.4); MONOCYTES % 10.2 % (2.0-8.0); NEUTROPHILS % 72.7 % (40.0-76.0); PLATELET 277 x1000/uL (130-400); RED BLOOD CELL COUNT 3.47 mill/uL (4.2-5.4); RED CELL DISTRIBUTION WIDTH 17.7 % (11.6-14.6)
[2021-06-26] MEDS: LEVOTHYROXINE SODIUM 75MCG TABLET PO SCH (06:31)
[2021-06-26] MEDS: DILTIAZEM HCL 60MG TABLET PO SCH ×3 (06:31→18:32)
[2021-06-26] MEDS: BLOOD SUGAR DIAGNOSTIC STRIP TEST SCH ×4 (06:56→20:50)
[2021-06-26] MEDS: INSULIN LISPRO 100 UNITS/ML SUBCUT SCH ×4 (07:20→20:50)
[2021-06-26] MEDS: BUDESONIDE 0.5MG/2ML NEB HHN SCH ×2 (07:58→21:51)
[2021-06-26] MEDS ORDERED: ASCORBIC ACID 500MG/5ML 120ML PO SCH (09:00)
[2021-06-26] MEDS: FUROSEMIDE 40MG/4ML VIAL IVP SCH (09:26)
[2021-06-26] MEDS: ZINC SULFATE 220 MG ( 50 ) CAPSULE PO SCH (09:26)
[2021-06-26] MEDS: ASCORBIC ACID 500 MG TABLET PO SCH (09:26)
[2021-06-26] MEDS: DOCUSATE SODIUM SUGAR FREE 100MG/10ML UDC NG SCH ×2 (09:26→17:00)
[2021-06-26] MEDS: PANTOPRAZOLE 40MG DR TABLET PO SCH ×2 (09:26→20:36)
[2021-06-26] MEDS: SPIRONOLACTONE 25MG TABLET PO SCH (09:27)
[2021-06-26] MEDS: APIXABAN 5 MG TABLET PO SCH (18:32)
[2021-06-27] VITALS (12 sets, daily range): BP systolic 125–157; BP diastolic 57–73
[2021-06-27] MEDS: DILTIAZEM HCL 60MG TABLET PO SCH ×5 (00:02→23:21)
[2021-06-27] MEDS: IPRATROPIUM/ALBUTEROL 0.5-3(2.5)MG/3ML NEB HHN SCH ×4 (01:17→20:57)
[2021-06-27] MEDS: LEVOTHYROXINE SODIUM 75MCG TABLET PO SCH (05:58)
[2021-06-27 06:01] LABS: BASOPHILS % 0.6 % (0.0-2.0); EOSINOPHILS % 2.3 % (0.0-5.0); HEMATOCRIT. 26.9 % (36.0-48.0); HEMOGLOBIN. 8.7 g/dL (12.0-16.0); LYMPHOCYTES % 15.1 % (20.0-50.0); MEAN CORPUSCULAR HEMOGLOBIN 25.6 pg (28.0-32.0); MEAN CORPUSCULAR VOLUME 79.6 fL (81.0-99.0); MEAN PLATELET VOLUME 7.6 fl (7.4-10.4); MONOCYTES % 10.5 % (2.0-8.0); NEUTROPHILS % 71.5 % (40.0-76.0); PLATELET 271 x1000/uL (130-400); RED BLOOD CELL COUNT 3.38 mill/uL (4.2-5.4); RED CELL DISTRIBUTION WIDTH 17.4 % (11.6-14.6)
[2021-06-27 06:06] LABS: CHLORIDE 101 mEq/L (98-107)
[2021-06-27] MEDS: BLOOD SUGAR DIAGNOSTIC STRIP TEST SCH ×4 (06:34→20:51)
[2021-06-27] MEDS: INSULIN LISPRO 100 UNITS/ML SUBCUT SCH ×4 (07:20→20:51)
[2021-06-27] MEDS: BUDESONIDE 0.5MG/2ML NEB HHN SCH ×2 (07:40→20:57)
[2021-06-27] MEDS: DOCUSATE SODIUM SUGAR FREE 100MG/10ML UDC NG SCH ×2 (09:00→17:00)
[2021-06-27 09:25] LABS: BG BASE EXCESS 12.6 mmol/L (-2.0-2.0); BG CARBOXYHEMOGLOBIN 0.5 % (0.5-1.5); BG DEOXYHEMOGLOBIN 3.9 % (0.0-5.0); BG FRACTION INSPIRED OXYGEN 28; BG HCO3 ACT 37.8 mmol/L (22.0-26.0); BG METHEMOGLOBIN 0.2 % (0.0-1.5); BG OXYGEN SATURATION 96.1 % (92.0-98.5); BG OXYHEMOGLOBIN 95.4 % (94.0-97.0); BG PCO2 53.8 mmHg (35.0-45.0); BG PH 7.465 (7.350-7.450); BG SAMPLE SITE RIGHT RADIAL; BG TOTAL HEMOGLOBIN 8.8 g/dL (12.0-18.0); BG VENT MODE NASAL CANNULA
[2021-06-27] MEDS: APIXABAN 5 MG TABLET PO SCH ×2 (09:32→17:33)
[2021-06-27] MEDS: ASPIRIN 81MG TABLET PO SCH (09:32)
[2021-06-27] MEDS: ASCORBIC ACID 500 MG TABLET PO SCH (09:32)
[2021-06-27] MEDS: PANTOPRAZOLE 40MG DR TABLET PO SCH ×2 (09:32→20:34)
[2021-06-27] MEDS: ZINC SULFATE 220 MG ( 50 ) CAPSULE PO SCH (09:32)
[2021-06-27] MEDS: SPIRONOLACTONE 25MG TABLET PO SCH (09:32)
[2021-06-27] MEDS: FUROSEMIDE 40MG/4ML VIAL IVP SCH (09:32)
[2021-06-28] VITALS (14 sets, daily range): BP systolic 120–150; BP diastolic 58–75
[2021-06-28] MEDS: IPRATROPIUM/ALBUTEROL 0.5-3(2.5)MG/3ML NEB HHN SCH ×4 (02:21→20:43)
[2021-06-28] MEDS: LEVOTHYROXINE SODIUM 75MCG TABLET PO SCH (05:59)
[2021-06-28] MEDS: DILTIAZEM HCL 60MG TABLET PO SCH ×3 (06:00→17:56)
[2021-06-28 06:25] LABS: CHLORIDE 103 mEq/L (98-107)
[2021-06-28 06:29] LABS: BASOPHILS % 1.2 % (0.0-2.0); EOSINOPHILS % 2.5 % (0.0-5.0); HEMATOCRIT. 27.5 % (36.0-48.0); HEMOGLOBIN. 8.8 g/dL (12.0-16.0); LYMPHOCYTES % 17.9 % (20.0-50.0); MEAN CORPUSCULAR HEMOGLOBIN 25.4 pg (28.0-32.0); MEAN CORPUSCULAR VOLUME 79.5 fL (81.0-99.0); MEAN PLATELET VOLUME 7.9 fl (7.4-10.4); MONOCYTES % 10.5 % (2.0-8.0); NEUTROPHILS % 67.9 % (40.0-76.0); PLATELET 291 x1000/uL (130-400); RED BLOOD CELL COUNT 3.46 mill/uL (4.2-5.4)
[2021-06-28] MEDS: BLOOD SUGAR DIAGNOSTIC STRIP TEST SCH ×4 (06:52→21:00)
[2021-06-28] MEDS: INSULIN LISPRO 100 UNITS/ML SUBCUT SCH ×4 (07:20→21:00)
[2021-06-28] MEDS: BUDESONIDE 0.5MG/2ML NEB HHN SCH (07:34)
[2021-06-28] MEDS: ASPIRIN 81MG TABLET PO SCH (09:11)
[2021-06-28] MEDS: ZINC SULFATE 220 MG ( 50 ) CAPSULE PO SCH (09:11)
[2021-06-28] MEDS: ASCORBIC ACID 500 MG TABLET PO SCH (09:11)
[2021-06-28] MEDS: APIXABAN 5 MG TABLET PO SCH ×2 (09:12→17:56)
[2021-06-28] MEDS: SPIRONOLACTONE 25MG TABLET PO SCH (09:12)
[2021-06-28] MEDS: PANTOPRAZOLE 40MG DR TABLET PO SCH ×2 (09:13→22:14)
[2021-06-28] MEDS: FUROSEMIDE 40MG/4ML VIAL IVP SCH (09:13)
[2021-06-28] MEDS: DOCUSATE SODIUM SUGAR FREE 100MG/10ML UDC NG SCH ×2 (09:13→17:56)
[2021-06-29] VITALS (14 sets, daily range): BP systolic 102–142; BP diastolic 49–98
[2021-06-29] MEDS: DILTIAZEM HCL 60MG TABLET PO SCH ×2 (01:31→06:35)
[2021-06-29] MEDS: IPRATROPIUM/ALBUTEROL 0.5-3(2.5)MG/3ML NEB HHN SCH ×4 (02:12→20:16)
[2021-06-29] MEDS: LEVOTHYROXINE SODIUM 75MCG TABLET PO SCH (06:35)
[2021-06-29] MEDS: INSULIN LISPRO 100 UNITS/ML SUBCUT SCH ×4 (07:20→21:00)
[2021-06-29] MEDS: BLOOD SUGAR DIAGNOSTIC STRIP TEST SCH ×4 (07:34→21:00)
[2021-06-29] MEDS: BUDESONIDE 0.5MG/2ML NEB HHN SCH (07:41)
[2021-06-29] MEDS: DOCUSATE SODIUM SUGAR FREE 100MG/10ML UDC NG SCH ×2 (09:03→18:29)
[2021-06-29] MEDS: SPIRONOLACTONE 25MG TABLET PO SCH (09:04)
[2021-06-29] MEDS: ASPIRIN 81MG TABLET PO SCH (09:04)
[2021-06-29] MEDS: ASCORBIC ACID 500 MG TABLET PO SCH (09:04)
[2021-06-29] MEDS: FUROSEMIDE 40MG/4ML VIAL IVP SCH (09:04)
[2021-06-29] MEDS: ZINC SULFATE 220 MG ( 50 ) CAPSULE PO SCH (09:04)
[2021-06-29] MEDS: PANTOPRAZOLE 40MG DR TABLET PO SCH ×2 (09:04→21:35)
[2021-06-29] MEDS: APIXABAN 5 MG TABLET PO SCH ×2 (09:04→18:29)
[2021-06-29] MEDS ORDERED: DILTIAZEM HCL 5MG/ML 5ML VIAL IV NR ×2 (09:45→13:15)
[2021-06-29] MEDS ORDERED: DILTIAZEM HCL 120MG CAPSULE CD 24HR PO SCH (18:00)
[2021-06-29] MEDS ORDERED: DILTIAZEM HCL 5MG/ML 5ML VIAL IV PRN (19:15)
== END 2021-06-29 22:55 | DRG 239 ==
LOC: 3WST 05:40
PROVIDERS: ADMIT Internal Medicine; ATTEND Internal Medicine
PROC: 05HM33Z Insertion of Infusion Device into Right Internal Jugular Vein, Percutaneous Approach (ICD-10-PCS; 2021-06-21)
PROC: B543ZZA Ultrasonography of Right Jugular Veins, Guidance (ICD-10-PCS; 2021-06-21)
PROC: 0Y6D0Z3 Detachment at Left Upper Leg, Low, Open Approach (ICD-10-PCS; principal; 2021-06-22)
PROC: 5A09357 Assistance with Respiratory Ventilation, Less than 24 Consecutive Hours, Continuous Positive Airway Pressure (ICD-10-PCS; 2021-06-22)
PROC: 5A09457 Assistance with Respiratory Ventilation, 24-96 Consecutive Hours, Continuous Positive Airway Pressure (ICD-10-PCS; 2021-06-24)
PROC: 5A09457 Assistance with Respiratory Ventilation, 24-96 Consecutive Hours, Continuous Positive Airway Pressure (ICD-10-PCS; 2021-06-27)
DX: E11.52 Type 2 diabetes mellitus with diabetic peripheral angiopathy with gangrene (principal); E43 Unspecified severe protein-calorie malnutrition; I48.20 Chronic atrial fibrillation, unspecified; I50.32 Chronic diastolic (congestive) heart failure; K55.9 Vascular disorder of intestine, unspecified; J96.10 Chronic respiratory failure, unspecified whether with hypoxia or hypercapnia; I31.3 Pericardial effusion (noninflammatory); I96 Gangrene, not elsewhere classified; D63.8 Anemia in other chronic diseases classified elsewhere; E03.9 Hypothyroidism, unspecified; E11.40 Type 2 diabetes mellitus with diabetic neuropathy, unspecified; E78.5 Hyperlipidemia, unspecified; I11.0 Hypertensive heart disease with heart failure; I95.1 Orthostatic hypotension; J30.9 Allergic rhinitis, unspecified; J44.9 Chronic obstructive pulmonary disease, unspecified; R13.10 Dysphagia, unspecified; I25.10 Atherosclerotic heart disease of native coronary artery without angina pectoris; I74.5 Embolism and thrombosis of iliac artery; Z20.822 Contact with and (suspected) exposure to COVID-19; E78.00 Pure hypercholesterolemia, unspecified; L89.156 Pressure-induced deep tissue damage of sacral region; I36.1 Nonrheumatic tricuspid (valve) insufficiency; I27.20 Pulmonary hypertension, unspecified; Z90.710 Acquired absence of both cervix and uterus; Z93.1 Gastrostomy status; Z68.23 Body mass index [BMI] 23.0-23.9, adult; Z79.01 Long term (current) use of anticoagulants; Z79.02 Long term (current) use of antithrombotics/antiplatelets; Z79.4 Long term (current) use of insulin; Z79.890 Hormone replacement therapy; Z87.19 Personal history of other diseases of the digestive system
CPT/HCPCS: 36415; 36600; 71045; 75635; 76937; 80048; 80053; 82040; 82375; 82805; 82962; 83036; 83735; 84134; 84145; 85025; 86850; 86900; 86920; 87426; 88307; 88311; 93005; 94640; 94660; A6261; J1100; J1815; J1940; J2185; J2250; J2370; J2405; J2704; J2710; J2795; J3010; J3370; J3490; J7040; J7626; A4315

== ENCOUNTER 2021-08-05 15:00 | Inpatient (IN) | payer MEDICARE, MEDICAID ==
[~2021-08-05] VITALS: Ht 167.6 cm; Wt 59.0 kg
[~2021-08-05 15:00] MED LIST changes: +CARSR60 MT; +CLON0.1T PO; +DOCU-150 MT; +FURO40TA5 MT; +LEVO50TA8 PO; +MIDO5TAB4 MT; +SPIR25TA6 MT
[2021-08-05 16:00] VITALS: BP 159/96
[2021-08-05] MEDS ORDERED: CLONIDINE 0.1MG TABLET PO PRN (16:00)
[2021-08-05] MEDS ORDERED: VANCOMYCIN 750 MG PREMIX 150 ML IV SCH ×2 (16:00→21:00)
[2021-08-05] MEDS ORDERED: TRAMADOL 50MG TABLET PO PRN (16:00)
[2021-08-05] MEDS: DEXTROSE 50% WATER 50ML SYRINGE IV PRN (17:15)
[2021-08-05] MEDS ORDERED: BLOOD SUGAR DIAGNOSTIC STRIP TEST SCH (17:30)
[2021-08-05 18:00] VITALS: BP 147/79
[2021-08-05] MEDS ORDERED: INSULIN LISPRO 100 UNITS/ML SUBCUT SCH (18:00)
[2021-08-05] MEDS: DOCUSATE SODIUM 100MG CAPSULE PO SCH (18:00)
[2021-08-05] MEDS: LANSOPRAZOLE 30MG DR CAPSULE GT SCH (18:00)
[2021-08-05] MEDS: CHLORHEXIDINE GLUCONATE 0.12% MOUTHWASH UDC SSP SCH (18:32)
[2021-08-05] MEDS: DILTIAZEM HCL 60MG TABLET PO SCH ×2 (18:36→23:26)
[2021-08-05 19:19] LABS: BASOPHILS % 0.5 % (0.0-2.0); EOSINOPHILS % 2.6 % (0.0-5.0); HEMATOCRIT. 33.6 % (36.0-48.0); HEMOGLOBIN. 10.9 g/dL (12.0-16.0); LYMPHOCYTES % 11.8 % (20.0-50.0); MEAN PLATELET VOLUME 8.3 fl (7.4-10.4); MONOCYTES % 10.2 % (2.0-8.0); NEUTROPHILS % 74.9 % (40.0-76.0); PLATELET 329 x1000/uL (130-400); RED CELL DISTRIBUTION WIDTH 20.5 % (11.6-14.6)
[2021-08-05 19:25] LABS: CHLORIDE 98 mEq/L (98-107)
[2021-08-05 20:00] VITALS: BP 152/86
[2021-08-05] MEDS: IPRATROPIUM/ALBUTEROL 0.5-3(2.5)MG/3ML NEB HHN SCH (20:32)
[2021-08-05] MEDS: BUDESONIDE 0.5MG/2ML NEB HHN SCH (20:32)
[2021-08-05] MEDS: MIDODRINE HCL 5MG TABLET GT SCH (21:44)
[2021-08-05 22:00] VITALS: BP 136/78
[2021-08-05] MEDS ORDERED: MEROPENEM 500 MG in SODIUM CHLORIDE 0.9% 50 ML IV SCH (22:00)
[2021-08-05] MEDS: MEROPENEM 1000MG in NORMAL SALINE 100ML IV SCH (22:57)
[2021-08-05] MEDS: BLOOD SUGAR DIAGNOSTIC STRIP TEST SCH (23:26)
[2021-08-05] MEDS: INSULIN LISPRO 100 UNITS/ML SUBCUT SCH (23:26)
[2021-08-06] VITALS (12 sets, daily range): BP systolic 125–154; BP diastolic 55–89
[2021-08-06] MEDS: IPRATROPIUM/ALBUTEROL 0.5-3(2.5)MG/3ML NEB HHN SCH ×4 (02:18→20:46)
[2021-08-06] MEDS: CHLORHEXIDINE GLUCONATE 0.12% MOUTHWASH UDC SSP SCH ×2 (05:46→18:00)
[2021-08-06] MEDS: MIDODRINE HCL 5MG TABLET GT SCH ×2 (05:47→06:00)
[2021-08-06] MEDS: DILTIAZEM HCL 60MG TABLET PO SCH ×3 (05:48→18:10)
[2021-08-06] MEDS: DOCUSATE SODIUM 100MG CAPSULE PO SCH (05:48)
[2021-08-06] MEDS: LANSOPRAZOLE 30MG DR CAPSULE GT SCH (05:49)
[2021-08-06] MEDS: INSULIN LISPRO 100 UNITS/ML SUBCUT SCH ×3 (06:00→18:00)
[2021-08-06] MEDS: BLOOD SUGAR DIAGNOSTIC STRIP TEST SCH ×3 (06:29→18:10)
[2021-08-06 06:41] LABS: BASOPHILS % 0.5 % (0.0-2.0); CHLORIDE 98 mEq/L (98-107); HEMATOCRIT. 33.4 % (36.0-48.0); HEMOGLOBIN. 10.4 g/dL (12.0-16.0); LYMPHOCYTES % 10.7 % (20.0-50.0); MEAN CORPUSCULAR HEMOGLOBIN 25.1 pg (28.0-32.0); MEAN CORPUSCULAR VOLUME 80.7 fL (81.0-99.0); MEAN PLATELET VOLUME 8.2 fl (7.4-10.4); MONOCYTES % 9.8 % (2.0-8.0); PLATELET 334 x1000/uL (130-400); RED BLOOD CELL COUNT 4.14 mill/uL (4.2-5.4); RED CELL DISTRIBUTION WIDTH 20.9 % (11.6-14.6)
[2021-08-06 07:01] LABS: T4 FREE 0.76 ng/dL (0.76-1.46)
[2021-08-06 07:03] LABS: PHOSPHORUS 2.6 mg/dL (2.5-4.9)
[2021-08-06] MEDS ORDERED: LEVOTHYROXINE SODIUM 75MCG TABLET GT SCH (07:30)
[2021-08-06] MEDS: BUDESONIDE 0.5MG/2ML NEB HHN SCH ×2 (07:43→20:46)
[2021-08-06] MEDS: ASPIRIN 81MG TABLET GT SCH (09:56)
[2021-08-06] MEDS: ZINC SULFATE 220 MG ( 50 ) CAPSULE GT SCH (09:56)
[2021-08-06] MEDS: ASCORBIC ACID 500 MG TABLET GT SCH (09:56)
[2021-08-06] MEDS: FUROSEMIDE 40MG/4ML VIAL IVP SCH (09:57)
[2021-08-06] MEDS: MEROPENEM 1000MG in NORMAL SALINE 100ML IV SCH ×2 (10:41→21:51)
[2021-08-06] MEDS: SODIUM HYPOCHLORITE (0.25%) 480ML SOLUTION (HALF STRENGTH) TOP SCH (10:42)
[2021-08-06] MEDS: SPIRONOLACTONE 25MG TABLET GT SCH (10:45)
[2021-08-06] MEDS ORDERED: MIDODRINE HCL 5MG TABLET GT PRN (11:00)
[2021-08-06] MEDS ORDERED: POTASSIUM CHLORIDE 20MEQ TABLET SR PO SCH (11:00)
[2021-08-06] MEDS: ENOXAPARIN 40MG/0.4ML SYR SUBCUT SCH (14:26)
[2021-08-06] MEDS: FAMOTIDINE 20MG TABLET PO SCH (18:14)
[2021-08-06] MEDS: LACTULOSE 20G/30ML UDC PO SCH (21:59)
[2021-08-06] MEDS: VANCOMYCIN 750 MG PREMIX 150 ML IV SCH (23:18)
[2021-08-07] VITALS (12 sets, daily range): BP systolic 122–153; BP diastolic 63–85
[2021-08-07] MEDS: BLOOD SUGAR DIAGNOSTIC STRIP TEST SCH ×4 (00:47→18:45)
[2021-08-07] MEDS: DILTIAZEM HCL 60MG TABLET PO SCH ×4 (00:47→18:05)
[2021-08-07] MEDS: IPRATROPIUM/ALBUTEROL 0.5-3(2.5)MG/3ML NEB HHN SCH ×4 (00:53→20:44)
[2021-08-07] MEDS: INSULIN LISPRO 100 UNITS/ML SUBCUT SCH ×4 (06:00→18:00)
[2021-08-07] MEDS: BUDESONIDE 0.5MG/2ML NEB HHN SCH ×2 (06:36→20:44)
[2021-08-07] MEDS: LACTULOSE 20G/30ML UDC PO SCH ×3 (06:36→21:47)
[2021-08-07] MEDS: CHLORHEXIDINE GLUCONATE 0.12% MOUTHWASH UDC SSP SCH ×2 (06:41→18:49)
[2021-08-07 06:43] LABS: BASOPHILS % 0.7 % (0.0-2.0); EOSINOPHILS % 3.2 % (0.0-5.0); HEMATOCRIT. 37.4 % (36.0-48.0); HEMOGLOBIN. 11.8 g/dL (12.0-16.0); LYMPHOCYTES % 9.5 % (20.0-50.0); MEAN CORPUSCULAR HEMOGLOBIN 25.7 pg (28.0-32.0); MEAN CORPUSCULAR VOLUME 81.4 fL (81.0-99.0); MEAN PLATELET VOLUME 8.5 fl (7.4-10.4); MONOCYTES % 10.7 % (2.0-8.0); NEUTROPHILS % 75.9 % (40.0-76.0); PLATELET 323 x1000/uL (130-400); RED BLOOD CELL COUNT 4.59 mill/uL (4.2-5.4); RED CELL DISTRIBUTION WIDTH 20.5 % (11.6-14.6)
[2021-08-07 07:20] LABS: CHLORIDE 98 mEq/L (98-107)
[2021-08-07] MEDS: ASPIRIN 81MG TABLET GT SCH (08:34)
[2021-08-07] MEDS: ASCORBIC ACID 500 MG TABLET GT SCH (08:34)
[2021-08-07] MEDS: ZINC SULFATE 220 MG ( 50 ) CAPSULE GT SCH (08:34)
[2021-08-07] MEDS: SPIRONOLACTONE 25MG TABLET GT SCH (08:35)
[2021-08-07] MEDS: LEVOTHYROXINE SODIUM 75MCG TABLET GT SCH (08:35)
[2021-08-07] MEDS: SODIUM HYPOCHLORITE (0.25%) 480ML SOLUTION (HALF STRENGTH) TOP SCH (08:37)
[2021-08-07] MEDS: MEROPENEM 1000MG in NORMAL SALINE 100ML IV SCH ×2 (10:42→21:47)
[2021-08-07] MEDS: ENOXAPARIN 40MG/0.4ML SYR SUBCUT SCH (13:13)
[2021-08-07] MEDS: FAMOTIDINE 20MG TABLET PO SCH (18:04)
[2021-08-07] MEDS: VANCOMYCIN 750 MG PREMIX 150 ML IV SCH (22:38)
[2021-08-08] VITALS (11 sets, daily range): BP systolic 119–148; BP diastolic 66–83
[2021-08-08] MEDS: IPRATROPIUM/ALBUTEROL 0.5-3(2.5)MG/3ML NEB HHN SCH ×4 (02:14→20:55)
[2021-08-08] MEDS: DILTIAZEM HCL 60MG TABLET PO SCH ×5 (02:21→23:28)
[2021-08-08] MEDS: CHLORHEXIDINE GLUCONATE 0.12% MOUTHWASH UDC SSP SCH ×2 (05:19→18:47)
[2021-08-08] MEDS: BLOOD SUGAR DIAGNOSTIC STRIP TEST SCH ×5 (05:19→23:28)
[2021-08-08] MEDS: LACTULOSE 20G/30ML UDC PO SCH ×3 (05:19→21:02)
[2021-08-08] MEDS: INSULIN LISPRO 100 UNITS/ML SUBCUT SCH ×5 (05:19→23:35)
[2021-08-08] MEDS: BUDESONIDE 0.5MG/2ML NEB HHN SCH ×2 (07:55→20:55)
[2021-08-08] MEDS: ZINC SULFATE 220 MG ( 50 ) CAPSULE GT SCH (08:42)
[2021-08-08] MEDS: SODIUM HYPOCHLORITE (0.25%) 480ML SOLUTION (HALF STRENGTH) TOP SCH (08:42)
[2021-08-08] MEDS: LEVOTHYROXINE SODIUM 75MCG TABLET GT SCH (08:42)
[2021-08-08] MEDS: SPIRONOLACTONE 25MG TABLET GT SCH (08:42)
[2021-08-08] MEDS: ASCORBIC ACID 500 MG TABLET GT SCH (08:42)
[2021-08-08] MEDS: ASPIRIN 81MG TABLET GT SCH (08:43)
[2021-08-08] MEDS: MEROPENEM 1000MG in NORMAL SALINE 100ML IV SCH ×2 (10:54→21:02)
[2021-08-08] MEDS: FUROSEMIDE 40MG/4ML VIAL IVP SCH (11:24)
[2021-08-08] MEDS: ENOXAPARIN 40MG/0.4ML SYR SUBCUT SCH (13:23)
[2021-08-08 15:04] LABS: BG BASE EXCESS 12.2 mmol/L (-2.0-2.0); BG CARBOXYHEMOGLOBIN 0.5 % (0.5-1.5); BG DEOXYHEMOGLOBIN 5.4 % (0.0-5.0); BG FRACTION INSPIRED OXYGEN 28; BG HCO3 ACT 41.4 mmol/L (22.0-26.0); BG METHEMOGLOBIN 0.3 % (0.0-1.5); BG OXYGEN SATURATION 94.6 % (92.0-98.5); BG OXYHEMOGLOBIN 93.8 % (94.0-97.0); BG PCO2 81.7 mmHg (35.0-45.0); BG PH 7.323 (7.350-7.450); BG PO2 82.2 mmHg (75.0-100.0); BG SAMPLE SITE RIGHT RADIAL; BG VENT MODE NASAL CANNULA
[2021-08-08] MEDS: PREDNISONE 10MG TABLET PO SCH (16:46)
[2021-08-08] MEDS: FAMOTIDINE 20MG TABLET PO SCH (18:45)
[2021-08-08] MEDS: VANCOMYCIN 750 MG PREMIX 150 ML IV SCH (23:28)
[2021-08-09] VITALS (12 sets, daily range): BP systolic 130–155; BP diastolic 58–86
[2021-08-09] MEDS: IPRATROPIUM/ALBUTEROL 0.5-3(2.5)MG/3ML NEB HHN SCH ×4 (01:34→20:39)
[2021-08-09] MEDS: LACTULOSE 20G/30ML UDC PO SCH ×3 (05:39→22:36)
[2021-08-09] MEDS: DILTIAZEM HCL 60MG TABLET PO SCH ×3 (05:39→17:09)
[2021-08-09] MEDS: CHLORHEXIDINE GLUCONATE 0.12% MOUTHWASH UDC SSP SCH ×2 (05:40→17:09)
[2021-08-09] MEDS: BLOOD SUGAR DIAGNOSTIC STRIP TEST SCH ×3 (05:40→17:10)
[2021-08-09] MEDS: DEXTROSE 50% WATER 50ML SYRINGE IV PRN (05:46)
[2021-08-09] MEDS: INSULIN LISPRO 100 UNITS/ML SUBCUT SCH ×3 (05:51→17:09)
[2021-08-09 06:56] LABS: CHLORIDE 98 mEq/L (98-107)
[2021-08-09] MEDS: FUROSEMIDE 40MG/4ML VIAL IVP SCH (08:14)
[2021-08-09] MEDS: SPIRONOLACTONE 25MG TABLET GT SCH (08:14)
[2021-08-09] MEDS: ZINC SULFATE 220 MG ( 50 ) CAPSULE GT SCH (08:14)
[2021-08-09] MEDS: PREDNISONE 10MG TABLET PO SCH (08:14)
[2021-08-09] MEDS: ASCORBIC ACID 500 MG TABLET GT SCH (08:14)
[2021-08-09] MEDS: ASPIRIN 81MG TABLET GT SCH (08:14)
[2021-08-09] MEDS: LEVOTHYROXINE SODIUM 75MCG TABLET GT SCH (08:14)
[2021-08-09] MEDS: SODIUM HYPOCHLORITE (0.25%) 480ML SOLUTION (HALF STRENGTH) TOP SCH (08:15)
[2021-08-09] MEDS: MEROPENEM 1000MG in NORMAL SALINE 100ML IV SCH ×2 (09:10→22:36)
[2021-08-09 11:26] LABS: BG BASE EXCESS 12.1 mmol/L (-2.0-2.0); BG CARBOXYHEMOGLOBIN 0.2 % (0.5-1.5); BG DEOXYHEMOGLOBIN 2.8 % (0.0-5.0); BG HCO3 ACT 38.4 mmol/L (22.0-26.0); BG METHEMOGLOBIN 0.1 % (0.0-1.5); BG OXYGEN SATURATION 97.2 % (92.0-98.5); BG OXYHEMOGLOBIN 96.9 % (94.0-97.0); BG PCO2 59.6 mmHg (35.0-45.0); BG PH 7.427 (7.350-7.450); BG SAMPLE SITE LEFT RADIAL; BG TOTAL HEMOGLOBIN 10.9 g/dL (12.0-18.0); BG VENT MODE MASK - BIPAP
[2021-08-09] MEDS: ENOXAPARIN 40MG/0.4ML SYR SUBCUT SCH (12:26)
[2021-08-09] MEDS: FAMOTIDINE 20MG TABLET PO SCH (17:09)
[2021-08-09] MEDS: VANCOMYCIN 750 MG PREMIX 150 ML IV SCH (22:36)
[2021-08-10] VITALS (12 sets, daily range): BP systolic 131–156; BP diastolic 70–85
[2021-08-10] MEDS: IPRATROPIUM/ALBUTEROL 0.5-3(2.5)MG/3ML NEB HHN SCH ×4 (02:29→21:03)
[2021-08-10] MEDS: DILTIAZEM HCL 60MG TABLET PO SCH ×5 (05:31→23:51)
[2021-08-10] MEDS: LACTULOSE 20G/30ML UDC PO SCH ×3 (05:43→21:14)
[2021-08-10] MEDS: CHLORHEXIDINE GLUCONATE 0.12% MOUTHWASH UDC SSP SCH ×2 (05:43→17:23)
[2021-08-10] MEDS: BLOOD SUGAR DIAGNOSTIC STRIP TEST SCH ×5 (05:44→23:45)
[2021-08-10] MEDS: INSULIN LISPRO 100 UNITS/ML SUBCUT SCH ×5 (05:51→23:51)
[2021-08-10] MEDS: ASCORBIC ACID 500 MG TABLET GT SCH (08:33)
[2021-08-10] MEDS: ASPIRIN 81MG TABLET GT SCH (08:33)
[2021-08-10] MEDS: FUROSEMIDE 40MG/4ML VIAL IVP SCH (08:34)
[2021-08-10] MEDS: ZINC SULFATE 220 MG ( 50 ) CAPSULE GT SCH (08:34)
[2021-08-10] MEDS: LEVOTHYROXINE SODIUM 75MCG TABLET GT SCH (08:34)
[2021-08-10] MEDS: SPIRONOLACTONE 25MG TABLET GT SCH (08:36)
[2021-08-10] MEDS: PREDNISONE 10MG TABLET PO SCH (08:39)
[2021-08-10] MEDS: MEROPENEM 1000MG in NORMAL SALINE 100ML IV SCH ×2 (10:43→21:14)
[2021-08-10] MEDS: SODIUM HYPOCHLORITE (0.25%) 480ML SOLUTION (HALF STRENGTH) TOP SCH (10:44)
[2021-08-10] MEDS: ENOXAPARIN 40MG/0.4ML SYR SUBCUT SCH (11:49)
[2021-08-10] MEDS: FAMOTIDINE 20MG TABLET PO SCH (16:52)
[2021-08-10] MEDS: VANCOMYCIN 750 MG PREMIX 150 ML IV SCH (23:45)
[2021-08-11] VITALS (12 sets, daily range): BP systolic 121–163; BP diastolic 60–89
[2021-08-11] MEDS: IPRATROPIUM/ALBUTEROL 0.5-3(2.5)MG/3ML NEB HHN SCH ×4 (01:00→20:34)
[2021-08-11] MEDS: INSULIN LISPRO 100 UNITS/ML SUBCUT SCH ×3 (06:00→17:57)
[2021-08-11] MEDS: CHLORHEXIDINE GLUCONATE 0.12% MOUTHWASH UDC SSP SCH ×2 (06:15→17:59)
[2021-08-11] MEDS: BLOOD SUGAR DIAGNOSTIC STRIP TEST SCH ×3 (06:16→17:57)
[2021-08-11] MEDS: LACTULOSE 20G/30ML UDC PO SCH ×3 (06:17→21:14)
[2021-08-11] MEDS: DILTIAZEM HCL 60MG TABLET PO SCH ×3 (06:17→17:59)
[2021-08-11 08:01] LABS: BG BASE EXCESS 13.8 mmol/L (-2.0-2.0); BG CARBOXYHEMOGLOBIN 0.3 % (0.5-1.5); BG DEOXYHEMOGLOBIN 3.8 % (0.0-5.0); BG HCO3 ACT 40.2 mmol/L (22.0-26.0); BG METHEMOGLOBIN 0.1 % (0.0-1.5); BG OXYGEN SATURATION 96.2 % (92.0-98.5); BG OXYHEMOGLOBIN 95.8 % (94.0-97.0); BG PCO2 61.6 mmHg (35.0-45.0); BG PH 7.433 (7.350-7.450); BG SAMPLE SITE LEFT RADIAL; BG TOTAL HEMOGLOBIN 10.7 g/dL (12.0-18.0); BG VENT MODE NASAL CANNULA
[2021-08-11] MEDS: LEVOTHYROXINE SODIUM 75MCG TABLET GT SCH (08:27)
[2021-08-11] MEDS: ZINC SULFATE 220 MG ( 50 ) CAPSULE GT SCH (08:27)
[2021-08-11] MEDS: SPIRONOLACTONE 25MG TABLET GT SCH (08:27)
[2021-08-11] MEDS: ASPIRIN 81MG TABLET GT SCH (08:27)
[2021-08-11] MEDS: FUROSEMIDE 40MG/4ML VIAL IVP SCH (08:28)
[2021-08-11] MEDS: ASCORBIC ACID 500 MG TABLET GT SCH (08:28)
[2021-08-11] MEDS: PREDNISONE 10MG TABLET PO SCH (08:28)
[2021-08-11] MEDS: SODIUM HYPOCHLORITE (0.25%) 480ML SOLUTION (HALF STRENGTH) TOP SCH (08:30)
[2021-08-11] MEDS: MEROPENEM 1000MG in NORMAL SALINE 100ML IV SCH ×2 (09:45→21:14)
[2021-08-11] MEDS: ENOXAPARIN 40MG/0.4ML SYR SUBCUT SCH (12:21)
[2021-08-11] MEDS: FAMOTIDINE 20MG TABLET PO SCH (17:37)
[2021-08-12] VITALS (12 sets, daily range): BP systolic 122–148; BP diastolic 61–78
[2021-08-12] MEDS: DILTIAZEM HCL 60MG TABLET PO SCH ×4 (00:36→17:26)
[2021-08-12] MEDS: BLOOD SUGAR DIAGNOSTIC STRIP TEST SCH ×4 (00:36→17:05)
[2021-08-12] MEDS: IPRATROPIUM/ALBUTEROL 0.5-3(2.5)MG/3ML NEB HHN SCH ×4 (02:42→21:17)
[2021-08-12] MEDS: INSULIN LISPRO 100 UNITS/ML SUBCUT SCH ×4 (05:21→17:29)
[2021-08-12] MEDS: LACTULOSE 20G/30ML UDC PO SCH ×3 (05:25→21:41)
[2021-08-12] MEDS: CHLORHEXIDINE GLUCONATE 0.12% MOUTHWASH UDC SSP SCH ×2 (05:29→17:21)
[2021-08-12] MEDS: SPIRONOLACTONE 25MG TABLET GT SCH (08:13)
[2021-08-12] MEDS: ASCORBIC ACID 500 MG TABLET GT SCH (08:13)
[2021-08-12] MEDS: FUROSEMIDE 40MG/4ML VIAL IVP SCH (08:13)
[2021-08-12] MEDS: PREDNISONE 10MG TABLET PO SCH (08:13)
[2021-08-12] MEDS: LEVOTHYROXINE SODIUM 75MCG TABLET GT SCH (08:13)
[2021-08-12] MEDS: ZINC SULFATE 220 MG ( 50 ) CAPSULE GT SCH (08:13)
[2021-08-12] MEDS: ASPIRIN 81MG TABLET GT SCH (08:13)
[2021-08-12] MEDS: SODIUM HYPOCHLORITE (0.25%) 480ML SOLUTION (HALF STRENGTH) TOP SCH (08:14)
[2021-08-12] MEDS: MEROPENEM 1000MG in NORMAL SALINE 100ML IV SCH ×2 (11:00→21:42)
[2021-08-12] MEDS: ENOXAPARIN 40MG/0.4ML SYR SUBCUT SCH (12:43)
[2021-08-12] MEDS ORDERED: NALOXONE HCL 0.4MG/ML VIAL IV PRN (14:15)
[2021-08-12] MEDS: TRAMADOL 50MG TABLET PO PRN (14:18)
[2021-08-12] MEDS: FAMOTIDINE 20MG TABLET PO SCH (17:21)
[2021-08-13] VITALS (12 sets, daily range): BP systolic 122–148; BP diastolic 54–77
[2021-08-13] MEDS: IPRATROPIUM/ALBUTEROL 0.5-3(2.5)MG/3ML NEB HHN SCH ×4 (01:37→20:39)
[2021-08-13] MEDS: INSULIN LISPRO 100 UNITS/ML SUBCUT SCH ×5 (06:00→23:49)
[2021-08-13] MEDS: BLOOD SUGAR DIAGNOSTIC STRIP TEST SCH ×5 (06:14→23:49)
[2021-08-13] MEDS: DILTIAZEM HCL 60MG TABLET PO SCH ×5 (06:23→23:49)
[2021-08-13] MEDS: LACTULOSE 20G/30ML UDC PO SCH ×3 (06:23→21:48)
[2021-08-13] MEDS: FUROSEMIDE 40MG/4ML VIAL IVP SCH (08:38)
[2021-08-13] MEDS: ASPIRIN 81MG TABLET GT SCH (08:38)
[2021-08-13] MEDS: LEVOTHYROXINE SODIUM 100MCG TABLET GT SCH (08:39)
[2021-08-13] MEDS: ZINC SULFATE 220 MG ( 50 ) CAPSULE GT SCH (08:39)
[2021-08-13] MEDS: SPIRONOLACTONE 25MG TABLET GT SCH (08:39)
[2021-08-13] MEDS: ASCORBIC ACID 500 MG TABLET GT SCH (08:39)
[2021-08-13] MEDS: TRAMADOL 50MG TABLET PO PRN ×2 (08:40→17:09)
[2021-08-13] MEDS: SODIUM HYPOCHLORITE (0.25%) 480ML SOLUTION (HALF STRENGTH) TOP SCH (08:40)
[2021-08-13] MEDS: MEROPENEM 1000MG in NORMAL SALINE 100ML IV SCH ×2 (09:54→21:48)
[2021-08-13] MEDS: ENOXAPARIN 40MG/0.4ML SYR SUBCUT SCH (13:44)
[2021-08-13] MEDS: FAMOTIDINE 20MG TABLET PO SCH (17:08)
[2021-08-14] VITALS (12 sets, daily range): BP systolic 106–140; BP diastolic 55–77
[2021-08-14] MEDS: IPRATROPIUM/ALBUTEROL 0.5-3(2.5)MG/3ML NEB HHN SCH ×4 (01:18→22:04)
[2021-08-14] MEDS: LACTULOSE 20G/30ML UDC PO SCH ×3 (05:32→21:35)
[2021-08-14] MEDS: DILTIAZEM HCL 60MG TABLET PO SCH ×4 (05:32→23:49)
[2021-08-14] MEDS: INSULIN LISPRO 100 UNITS/ML SUBCUT SCH ×4 (05:33→23:50)
[2021-08-14] MEDS: BLOOD SUGAR DIAGNOSTIC STRIP TEST SCH ×4 (05:33→23:50)
[2021-08-14 05:44] LABS: CHLORIDE 94 mEq/L (98-107)
[2021-08-14 05:54] LABS: CREATINE KINASE 28 IU/L (26-192)
[2021-08-14 06:28] LABS: BASOPHILS % 0.7 % (0.0-2.0); EOSINOPHILS % 4.7 % (0.0-5.0); HEMATOCRIT. 36.3 % (36.0-48.0); HEMOGLOBIN. 11.5 g/dL (12.0-16.0); LYMPHOCYTES % 17.2 % (20.0-50.0); MEAN CORPUSCULAR HEMOGLOBIN 25.9 pg (28.0-32.0); MEAN CORPUSCULAR VOLUME 81.4 fL (81.0-99.0); MONOCYTES % 10.2 % (2.0-8.0); NEUTROPHILS % 67.2 % (40.0-76.0); PLATELET 271 x1000/uL (130-400); RED BLOOD CELL COUNT 4.46 mill/uL (4.2-5.4); RED CELL DISTRIBUTION WIDTH 20.6 % (11.6-14.6)
[2021-08-14] MEDS: LEVOTHYROXINE SODIUM 100MCG TABLET GT SCH (07:52)
[2021-08-14] MEDS: ZINC SULFATE 220 MG ( 50 ) CAPSULE GT SCH (09:01)
[2021-08-14] MEDS: SPIRONOLACTONE 25MG TABLET GT SCH (09:01)
[2021-08-14] MEDS: ASPIRIN 81MG TABLET GT SCH (09:01)
[2021-08-14] MEDS: ASCORBIC ACID 500 MG TABLET GT SCH (09:02)
[2021-08-14] MEDS: SODIUM HYPOCHLORITE (0.25%) 480ML SOLUTION (HALF STRENGTH) TOP SCH (09:02)
[2021-08-14] MEDS: MEROPENEM 1000MG in NORMAL SALINE 100ML IV SCH ×2 (09:02→21:35)
[2021-08-14] MEDS: FUROSEMIDE 40MG/4ML VIAL IVP SCH (09:02)
[2021-08-14] MEDS: ENOXAPARIN 40MG/0.4ML SYR SUBCUT SCH (12:33)
[2021-08-14] MEDS: FAMOTIDINE 20MG TABLET PO SCH (17:38)
[2021-08-15] VITALS (13 sets, daily range): BP systolic 117–137; BP diastolic 58–77
[2021-08-15] MEDS: IPRATROPIUM/ALBUTEROL 0.5-3(2.5)MG/3ML NEB HHN SCH ×4 (02:24→20:36)
[2021-08-15] MEDS: BLOOD SUGAR DIAGNOSTIC STRIP TEST SCH ×3 (05:51→18:25)
[2021-08-15] MEDS: LACTULOSE 20G/30ML UDC PO SCH ×3 (05:51→21:48)
[2021-08-15] MEDS: INSULIN LISPRO 100 UNITS/ML SUBCUT SCH ×3 (05:51→18:00)
[2021-08-15] MEDS: DILTIAZEM HCL 60MG TABLET PO SCH ×4 (05:51→23:38)
[2021-08-15] MEDS: LEVOTHYROXINE SODIUM 100MCG TABLET GT SCH (07:48)
[2021-08-15] MEDS: ASPIRIN 81MG TABLET GT SCH (08:41)
[2021-08-15] MEDS: FUROSEMIDE 40MG/4ML VIAL IVP SCH (08:41)
[2021-08-15] MEDS: ZINC SULFATE 220 MG ( 50 ) CAPSULE GT SCH (08:42)
[2021-08-15] MEDS: ASCORBIC ACID 500 MG TABLET GT SCH (08:42)
[2021-08-15] MEDS: SODIUM HYPOCHLORITE (0.25%) 480ML SOLUTION (HALF STRENGTH) TOP SCH (08:42)
[2021-08-15] MEDS: SPIRONOLACTONE 25MG TABLET GT SCH (08:42)
[2021-08-15] MEDS: MEROPENEM 1000MG in NORMAL SALINE 100ML IV SCH ×2 (10:34→21:48)
[2021-08-15] MEDS: ENOXAPARIN 40MG/0.4ML SYR SUBCUT SCH (12:51)
[2021-08-15] MEDS: FAMOTIDINE 20MG TABLET PO SCH (17:57)
[2021-08-16] VITALS (12 sets, daily range): BP systolic 119–145; BP diastolic 58–73
[2021-08-16] MEDS: BLOOD SUGAR DIAGNOSTIC STRIP TEST SCH ×4 (00:09→18:06)
[2021-08-16] MEDS: IPRATROPIUM/ALBUTEROL 0.5-3(2.5)MG/3ML NEB HHN SCH ×4 (02:07→20:20)
[2021-08-16] MEDS: LACTULOSE 20G/30ML UDC PO SCH ×3 (05:46→21:25)
[2021-08-16] MEDS: LEVOTHYROXINE SODIUM 100MCG TABLET GT SCH (05:47)
[2021-08-16] MEDS: DILTIAZEM HCL 60MG TABLET PO SCH ×4 (05:49→23:35)
[2021-08-16] MEDS: INSULIN LISPRO 100 UNITS/ML SUBCUT SCH ×4 (06:00→18:00)
[2021-08-16] MEDS: FUROSEMIDE 40MG/4ML VIAL IVP SCH (09:29)
[2021-08-16] MEDS: ASPIRIN 81MG TABLET GT SCH (09:29)
[2021-08-16] MEDS: ASCORBIC ACID 500 MG TABLET GT SCH (09:29)
[2021-08-16] MEDS: SPIRONOLACTONE 25MG TABLET GT SCH (09:30)
[2021-08-16] MEDS: MEROPENEM 1000MG in NORMAL SALINE 100ML IV SCH ×2 (09:30→21:25)
[2021-08-16] MEDS: ZINC SULFATE 220 MG ( 50 ) CAPSULE GT SCH (09:30)
[2021-08-16] MEDS: SODIUM HYPOCHLORITE (0.25%) 480ML SOLUTION (HALF STRENGTH) TOP SCH (09:31)
[2021-08-16] MEDS: ENOXAPARIN 40MG/0.4ML SYR SUBCUT SCH (12:29)
[2021-08-16] MEDS: FAMOTIDINE 20MG TABLET PO SCH (17:52)
[2021-08-17] VITALS (12 sets, daily range): BP systolic 113–150; BP diastolic 56–82
[2021-08-17] MEDS: IPRATROPIUM/ALBUTEROL 0.5-3(2.5)MG/3ML NEB HHN SCH ×3 (00:39→22:03)
[2021-08-17] MEDS: LACTULOSE 20G/30ML UDC PO SCH ×3 (05:51→21:11)
[2021-08-17] MEDS: BLOOD SUGAR DIAGNOSTIC STRIP TEST SCH ×5 (05:52→23:52)
[2021-08-17] MEDS: DILTIAZEM HCL 60MG TABLET PO SCH ×4 (05:52→23:55)
[2021-08-17] MEDS: INSULIN LISPRO 100 UNITS/ML SUBCUT SCH ×5 (05:53→23:53)
[2021-08-17] MEDS: LEVOTHYROXINE SODIUM 100MCG TABLET GT SCH (08:02)
[2021-08-17] MEDS: ASPIRIN 81MG TABLET GT SCH (08:02)
[2021-08-17] MEDS: ASCORBIC ACID 500 MG TABLET GT SCH (08:02)
[2021-08-17] MEDS: ZINC SULFATE 220 MG ( 50 ) CAPSULE GT SCH (08:02)
[2021-08-17] MEDS: SPIRONOLACTONE 25MG TABLET GT SCH (08:02)
[2021-08-17] MEDS: SODIUM HYPOCHLORITE (0.25%) 480ML SOLUTION (HALF STRENGTH) TOP SCH (08:03)
[2021-08-17] MEDS: FUROSEMIDE 40MG/4ML VIAL IVP SCH (08:03)
[2021-08-17] MEDS: MEROPENEM 1000MG in NORMAL SALINE 100ML IV SCH ×2 (09:21→21:09)
[2021-08-17] MEDS: ENOXAPARIN 40MG/0.4ML SYR SUBCUT SCH (12:47)
[2021-08-17] MEDS: FAMOTIDINE 20MG TABLET PO SCH (18:09)
[2021-08-18] VITALS (12 sets, daily range): BP systolic 132–173; BP diastolic 55–87
[2021-08-18] MEDS: IPRATROPIUM/ALBUTEROL 0.5-3(2.5)MG/3ML NEB HHN SCH ×4 (02:12→20:41)
[2021-08-18] MEDS: INSULIN LISPRO 100 UNITS/ML SUBCUT SCH ×3 (06:00→18:00)
[2021-08-18] MEDS: BLOOD SUGAR DIAGNOSTIC STRIP TEST SCH ×3 (06:06→18:15)
[2021-08-18] MEDS: LACTULOSE 20G/30ML UDC PO SCH ×3 (06:12→21:55)
[2021-08-18] MEDS: DILTIAZEM HCL 60MG TABLET PO SCH ×3 (06:13→18:15)
[2021-08-18] MEDS: LEVOTHYROXINE SODIUM 100MCG TABLET GT SCH (08:54)
[2021-08-18] MEDS: SPIRONOLACTONE 25MG TABLET GT SCH (09:39)
[2021-08-18] MEDS: ASCORBIC ACID 500 MG TABLET GT SCH (09:39)
[2021-08-18] MEDS: ZINC SULFATE 220 MG ( 50 ) CAPSULE GT SCH (09:39)
[2021-08-18] MEDS: ASPIRIN 81MG TABLET GT SCH (09:39)
[2021-08-18] MEDS: FUROSEMIDE 40MG/4ML VIAL IVP SCH (09:39)
[2021-08-18] MEDS: SODIUM HYPOCHLORITE (0.25%) 480ML SOLUTION (HALF STRENGTH) TOP SCH (09:40)
[2021-08-18] MEDS: MEROPENEM 1000MG in NORMAL SALINE 100ML IV SCH ×2 (09:40→21:56)
[2021-08-18] MEDS: ENOXAPARIN 40MG/0.4ML SYR SUBCUT SCH (11:42)
[2021-08-18] MEDS: FAMOTIDINE 20MG TABLET PO SCH (18:14)
[2021-08-19] VITALS (12 sets, daily range): BP systolic 130–167; BP diastolic 58–80
[2021-08-19] MEDS: IPRATROPIUM/ALBUTEROL 0.5-3(2.5)MG/3ML NEB HHN SCH ×4 (01:30→20:28)
[2021-08-19] MEDS: DILTIAZEM HCL 60MG TABLET PO SCH ×4 (01:37→17:41)
[2021-08-19] MEDS: LACTULOSE 20G/30ML UDC PO SCH ×3 (05:47→21:01)
[2021-08-19] MEDS: INSULIN LISPRO 100 UNITS/ML SUBCUT SCH ×4 (05:47→17:41)
[2021-08-19] MEDS: BLOOD SUGAR DIAGNOSTIC STRIP TEST SCH ×4 (05:47→17:41)
[2021-08-19] MEDS: LEVOTHYROXINE SODIUM 100MCG TABLET GT SCH (07:50)
[2021-08-19] MEDS: FUROSEMIDE 40MG/4ML VIAL IVP SCH (09:14)
[2021-08-19] MEDS: SPIRONOLACTONE 25MG TABLET GT SCH (09:14)
[2021-08-19] MEDS: MEROPENEM 1000MG in NORMAL SALINE 100ML IV SCH ×2 (09:14→21:01)
[2021-08-19] MEDS: ASPIRIN 81MG TABLET GT SCH (09:14)
[2021-08-19] MEDS: ASCORBIC ACID 500 MG TABLET GT SCH (09:14)
[2021-08-19] MEDS: ZINC SULFATE 220 MG ( 50 ) CAPSULE GT SCH (09:14)
[2021-08-19] MEDS: SODIUM HYPOCHLORITE (0.25%) 480ML SOLUTION (HALF STRENGTH) TOP SCH (09:15)
[2021-08-19] MEDS: ENOXAPARIN 40MG/0.4ML SYR SUBCUT SCH (12:35)
[2021-08-19] MEDS: FAMOTIDINE 20MG TABLET PO SCH (17:41)
[2021-08-20] VITALS (12 sets, daily range): BP systolic 114–157; BP diastolic 59–82
[2021-08-20] MEDS: DILTIAZEM HCL 60MG TABLET PO SCH ×5 (00:43→23:33)
[2021-08-20] MEDS: IPRATROPIUM/ALBUTEROL 0.5-3(2.5)MG/3ML NEB HHN SCH ×4 (01:05→20:32)
[2021-08-20] MEDS: LACTULOSE 20G/30ML UDC PO SCH ×3 (05:25→21:43)
[2021-08-20] MEDS: INSULIN LISPRO 100 UNITS/ML SUBCUT SCH ×4 (05:26→18:00)
[2021-08-20] MEDS: BLOOD SUGAR DIAGNOSTIC STRIP TEST SCH ×5 (05:26→23:18)
[2021-08-20 06:25] LABS: EOSINOPHILS % 3.8 % (0.0-5.0); HEMATOCRIT. 34.2 % (36.0-48.0); HEMOGLOBIN. 10.9 g/dL (12.0-16.0); LYMPHOCYTES % 15.8 % (20.0-50.0); MEAN CORPUSCULAR HEMOGLOBIN 25.7 pg (28.0-32.0); MEAN CORPUSCULAR VOLUME 81.1 fL (81.0-99.0); MEAN PLATELET VOLUME 8.1 fl (7.4-10.4); NEUTROPHILS % 69.4 % (40.0-76.0); PLATELET 253 x1000/uL (130-400); RED BLOOD CELL COUNT 4.22 mill/uL (4.2-5.4); RED CELL DISTRIBUTION WIDTH 21.3 % (11.6-14.6)
[2021-08-20 06:51] LABS: CHLORIDE 101 mEq/L (98-107)
[2021-08-20] MEDS: ASPIRIN 81MG TABLET GT SCH (09:37)
[2021-08-20] MEDS: ASCORBIC ACID 500 MG TABLET GT SCH (09:38)
[2021-08-20] MEDS: FUROSEMIDE 40MG/4ML VIAL IVP SCH (09:38)
[2021-08-20] MEDS: LEVOTHYROXINE SODIUM 100MCG TABLET GT SCH (09:38)
[2021-08-20] MEDS: ZINC SULFATE 220 MG ( 50 ) CAPSULE GT SCH (09:38)
[2021-08-20] MEDS: SPIRONOLACTONE 25MG TABLET GT SCH (09:38)
[2021-08-20] MEDS: SODIUM HYPOCHLORITE (0.25%) 480ML SOLUTION (HALF STRENGTH) TOP SCH (09:39)
[2021-08-20] MEDS: MEROPENEM 1000MG in NORMAL SALINE 100ML IV SCH ×2 (09:40→21:42)
[2021-08-20] MEDS: ENOXAPARIN 40MG/0.4ML SYR SUBCUT SCH (13:26)
[2021-08-20] MEDS: FAMOTIDINE 20MG TABLET PO SCH (18:12)
[2021-08-21] VITALS (10 sets, daily range): BP systolic 120–152; BP diastolic 59–79
[2021-08-21] MEDS: IPRATROPIUM/ALBUTEROL 0.5-3(2.5)MG/3ML NEB HHN SCH ×4 (01:06→21:00)
[2021-08-21] MEDS: BLOOD SUGAR DIAGNOSTIC STRIP TEST SCH ×3 (05:23→17:07)
[2021-08-21] MEDS: DILTIAZEM HCL 60MG TABLET PO SCH ×3 (05:23→17:18)
[2021-08-21] MEDS: INSULIN LISPRO 100 UNITS/ML SUBCUT SCH ×4 (05:23→17:06)
[2021-08-21] MEDS: LACTULOSE 20G/30ML UDC PO SCH ×3 (05:23→21:08)
[2021-08-21] MEDS: SPIRONOLACTONE 25MG TABLET GT SCH (08:02)
[2021-08-21] MEDS: ASPIRIN 81MG TABLET GT SCH (08:02)
[2021-08-21] MEDS: ZINC SULFATE 220 MG ( 50 ) CAPSULE GT SCH (08:03)
[2021-08-21] MEDS: LEVOTHYROXINE SODIUM 100MCG TABLET GT SCH (08:03)
[2021-08-21] MEDS: FUROSEMIDE 40MG/4ML VIAL IVP SCH (08:03)
[2021-08-21] MEDS: ASCORBIC ACID 500 MG TABLET GT SCH (08:03)
[2021-08-21] MEDS: SODIUM HYPOCHLORITE (0.25%) 480ML SOLUTION (HALF STRENGTH) TOP SCH (08:04)
[2021-08-21] MEDS: MEROPENEM 1000MG in NORMAL SALINE 100ML IV SCH ×2 (09:25→21:08)
[2021-08-21] MEDS: ENOXAPARIN 40MG/0.4ML SYR SUBCUT SCH (12:07)
[2021-08-21] MEDS: FAMOTIDINE 20MG TABLET PO SCH (17:17)
[2021-08-22] VITALS (16 sets, daily range): BP systolic 118–160; BP diastolic 66–83
[2021-08-22] MEDS: BLOOD SUGAR DIAGNOSTIC STRIP TEST SCH ×4 (00:45→17:28)
[2021-08-22] MEDS: IPRATROPIUM/ALBUTEROL 0.5-3(2.5)MG/3ML NEB HHN SCH ×4 (01:06→15:19)
[2021-08-22] MEDS: LACTULOSE 20G/30ML UDC PO SCH ×2 (06:00→14:54)
[2021-08-22] MEDS: DILTIAZEM HCL 60MG TABLET PO SCH ×4 (06:00→17:39)
[2021-08-22] MEDS: INSULIN LISPRO 100 UNITS/ML SUBCUT SCH ×4 (06:00→17:28)
[2021-08-22] MEDS: LEVOTHYROXINE SODIUM 100MCG TABLET GT SCH (08:35)
[2021-08-22] MEDS: SPIRONOLACTONE 25MG TABLET GT SCH (08:36)
[2021-08-22] MEDS: ASCORBIC ACID 500 MG TABLET GT SCH (08:36)
[2021-08-22] MEDS: ZINC SULFATE 220 MG ( 50 ) CAPSULE GT SCH (08:37)
[2021-08-22] MEDS: ASPIRIN 81MG TABLET GT SCH (08:37)
[2021-08-22] MEDS: FUROSEMIDE 40MG/4ML VIAL IVP SCH (08:37)
[2021-08-22] MEDS: SODIUM HYPOCHLORITE (0.25%) 480ML SOLUTION (HALF STRENGTH) TOP SCH (08:38)
[2021-08-22] MEDS: MEROPENEM 1000MG in NORMAL SALINE 100ML IV SCH (10:47)
[2021-08-22] MEDS: ENOXAPARIN 40MG/0.4ML SYR SUBCUT SCH ×2 (12:00→12:42)
[2021-08-22] MEDS: FAMOTIDINE 20MG TABLET PO SCH (17:39)
[2021-08-22] MEDS ORDERED: MEROPENEM 1000MG in NORMAL SALINE 100ML IV SCH (22:00)
== END 2021-08-22 22:10 | DRG 871 ==
LOC: 5EST 15:00
PROVIDERS: ADMIT Internal Medicine; ATTEND Internal Medicine
PROC: 5A09457 Assistance with Respiratory Ventilation, 24-96 Consecutive Hours, Continuous Positive Airway Pressure (ICD-10-PCS; principal; 2021-08-08)
PROC: 5A09357 Assistance with Respiratory Ventilation, Less than 24 Consecutive Hours, Continuous Positive Airway Pressure (ICD-10-PCS; 2021-08-11)
DX: A41.9 Sepsis, unspecified organism (principal); E43 Unspecified severe protein-calorie malnutrition; J96.20 Acute and chronic respiratory failure, unspecified whether with hypoxia or hypercapnia; N17.9 Acute kidney failure, unspecified; I50.32 Chronic diastolic (congestive) heart failure; J44.1 Chronic obstructive pulmonary disease with (acute) exacerbation; L03.116 Cellulitis of left lower limb; T87.54 Necrosis of amputation stump, left lower extremity; Z89.612 Acquired absence of left leg above knee; D64.9 Anemia, unspecified; E87.6 Hypokalemia; E11.40 Type 2 diabetes mellitus with diabetic neuropathy, unspecified; E03.9 Hypothyroidism, unspecified; E78.5 Hyperlipidemia, unspecified; I25.10 Atherosclerotic heart disease of native coronary artery without angina pectoris; I27.81 Cor pulmonale (chronic); I11.0 Hypertensive heart disease with heart failure; I95.1 Orthostatic hypotension; E78.00 Pure hypercholesterolemia, unspecified; I48.0 Paroxysmal atrial fibrillation; R13.10 Dysphagia, unspecified; E11.51 Type 2 diabetes mellitus with diabetic peripheral angiopathy without gangrene; I99.8 Other disorder of circulatory system; S90.821A Blister (nonthermal), right foot, initial encounter; X58.XXXA Exposure to other specified factors, initial encounter; I87.2 Venous insufficiency (chronic) (peripheral); I35.0 Nonrheumatic aortic (valve) stenosis; I34.0 Nonrheumatic mitral (valve) insufficiency; J30.9 Allergic rhinitis, unspecified; L89.156 Pressure-induced deep tissue damage of sacral region; L89.896 Pressure-induced deep tissue damage of other site; Y83.8 Other surgical procedures as the cause of abnormal reaction of the patient, or of later complication, without mention of misadventure at the time of the procedure; Z93.1 Gastrostomy status; Z79.4 Long term (current) use of insulin; Z68.21 Body mass index [BMI] 21.0-21.9, adult; Y93.89 Activity, other specified; Y92.89 Other specified places as the place of occurrence of the external cause; Y99.8 Other external cause status; Z99.81 Dependence on supplemental oxygen; Z87.19 Personal history of other diseases of the digestive system
CPT/HCPCS: 36415; 36600; 71045; 80048; 80053; 80202; 82040; 82375; 82550; 82805; 82962; 83735; 84100; 84134; 84439; 84443; 85025; 85651; 86140; 87070; 87077; 87186; 94640; 94660; J1650; J1815; J1940; J2185; J3370; J7512; J7626

== ENCOUNTER 2021-08-27 22:03 | Inpatient (IN) | payer MEDICARE, MEDICAID ==
[~2021-08-27] VITALS: Ht 165.1 cm; Wt 69.4 kg
[2021-08-27 23:11] LABS: BG BASE EXCESS 5.2 mmol/L (-2.0-2.0); BG CARBOXYHEMOGLOBIN 0.2 % (0.5-1.5); BG FRACTION INSPIRED OXYGEN 36; BG HCO3 ACT 29.8 mmol/L (22.0-26.0); BG METHEMOGLOBIN 0.2 % (0.0-1.5); BG OXYHEMOGLOBIN 97.6 % (94.0-97.0); BG PCO2 44.2 mmHg (35.0-45.0); BG PH 7.447 (7.350-7.450); BG PO2 133.1 mmHg (75.0-100.0); BG SAMPLE SITE LEFT RADIAL; BG TOTAL HEMOGLOBIN 11.4 g/dL (12.0-18.0); BG VENT MODE NASAL CANNULA
[2021-08-27 23:31] LABS: BASOPHILS % 0.7 % (0.0-2.0); EOSINOPHILS % 0.2 % (0.0-5.0); HEMATOCRIT. 34.1 % (36.0-48.0); HEMOGLOBIN. 10.2 g/dL (12.0-16.0); LYMPHOCYTES % 12.9 % (20.0-50.0); MEAN CORPUSCULAR HEMOGLOBIN 24.9 pg (28.0-32.0); MEAN CORPUSCULAR VOLUME 83.1 fL (81.0-99.0); MEAN PLATELET VOLUME 8.5 fl (7.4-10.4); MONOCYTES % 7.1 % (2.0-8.0); NEUTROPHILS % 79.1 % (40.0-76.0); PLATELET 244 x1000/uL (130-400); RED CELL DISTRIBUTION WIDTH 20.9 % (11.6-14.6)
[2021-08-27 23:40] LABS: CHLORIDE 123 mEq/L (98-107)
[2021-08-28] MEDS ORDERED: SODIUM CHLORIDE 0.9% 1000ML BAG (SEPSIS BOLUS) IV NR (01:45)
[2021-08-28] MEDS ORDERED: MEROPENEM 1,000 MG in SODIUM CHLORIDE 0.9% 100 ML IV NR (02:00)
[2021-08-28] MEDS ORDERED: VANCOMYCIN 1 G PREMIX 200 ML IV NR (02:00)
[2021-08-28] MEDS ORDERED: NOREPINEPHRINE 8MG/250ML PMX 250 ML IV STA (02:09)
[2021-08-28] MEDS: NOREPINEPHRINE 8 MG in DEXTROSE 5% WATER 250 ML IV PRN ×3 (02:41→14:42)
[2021-08-28] MEDS ORDERED: CLINDAMYCIN 600 MG in DEXTROSE 5% WATER 50 ML IV ONE (03:15)
[2021-08-28] MEDS ORDERED: CLINDAMYCIN 600MG PREMIX 50 ML IV NR (04:15)
[2021-08-28] MEDS ORDERED: IPRATROPIUM/ALBUTEROL 0.5-3(2.5)MG/3ML NEB NEB PRN (07:30)
[2021-08-28] MEDS ORDERED: MAGNESIUM/ALUMINUM HYDROXIDE/SIMETHICONE 30ML UDC PO PRN (07:30)
[2021-08-28] MEDS ORDERED: ONDANSETRON HCL 4MG/2ML INJ IV PRN (07:30)
[2021-08-28] MEDS ORDERED: ACETAMINOPHEN 325MG TABLET PO PRN ×2 (07:30)
[2021-08-28] MEDS: DEXT 5%/0.45% NACL 1000ML 1,000 ML IV SCH ×2 (07:30→17:42)
[2021-08-28] MEDS ORDERED: GUAIFENESIN 200MG/10ML SUGAR FREE UDC PO PRN (07:30)
[2021-08-28] MEDS ORDERED: CLONIDINE 0.1MG TABLET PO PRN (07:30)
[2021-08-28] MEDS ORDERED: VASOPRESSIN 20 UNIT in SODIUM CHLORIDE 0.9% 99 ML IV PRN (07:30)
[2021-08-28] MEDS ORDERED: ENOXAPARIN 40MG/0.4ML SYR SUBCUT SCH (08:00)
[2021-08-28] MEDS: IPRATROPIUM/ALBUTEROL 0.5-3(2.5)MG/3ML NEB HHN SCH ×3 (08:00→16:00)
[2021-08-28 08:19] LABS: BG BASE EXCESS -9.4 mmol/L (-2.0-2.0); BG CARBOXYHEMOGLOBIN 0.3 % (0.5-1.5); BG DEOXYHEMOGLOBIN 46.3 % (0.0-5.0); BG FRACTION INSPIRED OXYGEN 100; BG HCO3 ACT 25.2 mmol/L (22.0-26.0); BG METHEMOGLOBIN 0.3 % (0.0-1.5); BG OXYGEN SATURATION 53.4 % (92.0-98.5); BG OXYHEMOGLOBIN 53.1 % (94.0-97.0); BG PH 6.899 (7.350-7.450); BG SAMPLE SITE LEFT RADIAL; BG TOTAL HEMOGLOBIN 10.5 g/dL (12.0-18.0); BG VENT MODE MASK - NRB
[2021-08-28] MEDS ORDERED: FENTANYL CITRATE/PF 2,500 MCG in SODIUM CHLORIDE 0.9% 200 ML IV STA (08:28)
[2021-08-28] MEDS ORDERED: MIDAZOLAM HCL 100 MG in DEXT 5% WATER 80 ML IV ONE (08:30)
[2021-08-28] MEDS ORDERED: ETOMIDATE 2MG/ML 10ML VIAL IV ONE ×2 (08:30→10:18)
[2021-08-28] MEDS ORDERED: SUCCINYLCHOLINE CHLORIDE 200MG/10ML IV ONE ×2 (08:30→10:18)
[2021-08-28] MEDS ORDERED: FENTANYL CITRATE/PF 50MCG/ML 2ML VIAL IV ONE (08:30)
[2021-08-28] MEDS ORDERED: MIDAZOLAM HCL 100 MG in SODIUM CHLORIDE 0.9% 100 ML IV PRN (08:45)
[2021-08-28] MEDS: MEROPENEM 1,000 MG in SODIUM CHLORIDE 0.9% 100 ML IV SCH ×3 (08:54→23:33)
[2021-08-28 10:22] LABS: BG BASE EXCESS -13.9 mmol/L (-2.0-2.0); BG CARBOXYHEMOGLOBIN 0.3 % (0.5-1.5); BG DEOXYHEMOGLOBIN 26.6 % (0.0-5.0); BG METHEMOGLOBIN 0.8 % (0.0-1.5); BG OXYGEN SATURATION 73.1 % (92.0-98.5); BG OXYHEMOGLOBIN 72.3 % (94.0-97.0); BG PCO2 48.3 mmHg (35.0-45.0); BG PO2 55.9 mmHg (75.0-100.0); BG SAMPLE SITE RIGHT BRACHIAL; BG TOTAL HEMOGLOBIN 9.9 g/dL (12.0-18.0); BG VENT MODE VENT - AC
[2021-08-28] MEDS ORDERED: SODIUM BICARBONATE 8.4% 1 MEQ/ML 50ML SYR IV NR (13:00)
[2021-08-28 14:49] LABS: BG BASE EXCESS -9.2 mmol/L (-2.0-2.0); BG CARBOXYHEMOGLOBIN 0.3 % (0.5-1.5); BG FRACTION INSPIRED OXYGEN 100; BG HCO3 ACT 17.4 mmol/L (22.0-26.0); BG METHEMOGLOBIN 0.6 % (0.0-1.5); BG OXYGEN SATURATION 78.8 % (92.0-98.5); BG OXYHEMOGLOBIN 78.1 % (94.0-97.0); BG PCO2 40.8 mmHg (35.0-45.0); BG PH 7.247 (7.350-7.450); BG PO2 53.9 mmHg (75.0-100.0); BG SAMPLE SITE LEFT RADIAL; BG TOTAL HEMOGLOBIN 9.1 g/dL (12.0-18.0); BG VENT MODE VENT - AC
[2021-08-28] MEDS: NOREPINEPHRINE 32 MG in DEXT 5% WATER 218 ML IV PRN (16:34)
[2021-08-28] MEDS: FUROSEMIDE 40MG/4ML VIAL IVP SCH (17:13)
[2021-08-28] MEDS: MIDODRINE HCL 5MG TABLET PO SCH (17:15)
[2021-08-28] MEDS ORDERED: ENOXAPARIN 40MG/0.4ML SYR SUBCUT NR ×2 (17:15→23:00)
[2021-08-28 21:04] LABS: CREATINE KINASE MB FRACTION 6.8 ng/mL (0.5-3.6)
[2021-08-28] MEDS: DILTIAZEM HCL 125 MG in DEXT 5% WATER 100 ML IV PRN (21:04)
[2021-08-28] MEDS ORDERED: VANCOMYCIN 750 MG PREMIX 150 ML IV SCH (23:00)
[2021-08-29] VITALS (48 sets, daily range): BP systolic 62–145; BP diastolic 23–57
[2021-08-29] MEDS: DEXT 5%/0.45% NACL 1000ML 1,000 ML IV SCH ×2 (03:30→16:01)
[2021-08-29] MEDS: IPRATROPIUM/ALBUTEROL 0.5-3(2.5)MG/3ML NEB HHN SCH ×4 (05:46→20:06)
[2021-08-29] MEDS: LEVOTHYROXINE SODIUM 100MCG TABLET PO SCH (06:41)
[2021-08-29 06:44] LABS: BASOPHILS % 0.4 % (0.0-2.0); EOSINOPHILS % 1.3 % (0.0-5.0); HEMATOCRIT. 26.2 % (36.0-48.0); MEAN CORPUSCULAR HEMOGLOBIN 25.2 pg (28.0-32.0); MEAN CORPUSCULAR VOLUME 82.1 fL (81.0-99.0); MEAN PLATELET VOLUME 8.5 fl (7.4-10.4); MONOCYTES % 4.4 % (2.0-8.0); NEUTROPHILS % 82.9 % (40.0-76.0); PLATELET 180 x1000/uL (130-400); RED CELL DISTRIBUTION WIDTH 20.6 % (11.6-14.6)
[2021-08-29 06:49] LABS: CHLORIDE 113 mEq/L (98-107)
[2021-08-29 06:55] LABS: PHOSPHORUS 4.2 mg/dL (2.5-4.9)
[2021-08-29 06:57] LABS: CREATINE KINASE 396 IU/L (26-192)
[2021-08-29 07:00] LABS: CREATINE KINASE MB FRACTION 4.2 ng/mL (0.5-3.6)
[2021-08-29] MEDS: ACETYLCYSTEINE 100MG/ML 10% VIAL 4ML INH SCH ×3 (08:04→15:49)
[2021-08-29] MEDS ORDERED: FENTANYL CITRATE/PF 2,500 MCG in SODIUM CHLORIDE 0.9% 200 ML IV PRN (08:45)
[2021-08-29] MEDS ORDERED: LORAZEPAM 2MG/ML CPJ IV PRN (08:45)
[2021-08-29] MEDS: MEROPENEM 1,000 MG in SODIUM CHLORIDE 0.9% 100 ML IV SCH ×2 (09:07→16:01)
[2021-08-29] MEDS: PANTOPRAZOLE SODIUM 40 MG/VIAL IV SCH (09:16)
[2021-08-29] MEDS: FUROSEMIDE 40MG/4ML VIAL IVP SCH (09:17)
[2021-08-29] MEDS ORDERED: MIDAZOLAM HCL 100 MG in SODIUM CHLORIDE 0.9% 80 ML IV PRN (10:00)
[2021-08-29 10:33] LABS: BG BASE EXCESS -5.3 mmol/L (-2.0-2.0); BG CARBOXYHEMOGLOBIN 0.1 % (0.5-1.5); BG DEOXYHEMOGLOBIN 1.7 % (0.0-5.0); BG FRACTION INSPIRED OXYGEN 100; BG HCO3 ACT 19.6 mmol/L (22.0-26.0); BG OXYGEN SATURATION 98.3 % (92.0-98.5); BG OXYHEMOGLOBIN 97.2 % (94.0-97.0); BG PCO2 35.8 mmHg (35.0-45.0); BG PH 7.356 (7.350-7.450); BG PO2 182.9 mmHg (75.0-100.0); BG SAMPLE SITE RIGHT RADIAL; BG TOTAL HEMOGLOBIN 8.9 g/dL (12.0-18.0); BG VENT MODE VENT - AC
[2021-08-29 12:33] LABS: CLARITY URINE CLOUDY (CLEAR); COLOR URINE DARK YELLOW (YELLOW); KETONES URINE NEGATIVE (NEGATIVE); LEUKOCYTE ESTERASE URINE TRACE (NEGATIVE); NITRITE URINE NEGATIVE (NEGATIVE); OCCULT BLOOD URINE 2+ (NEGATIVE); PROTEIN URINE 2+ (NEGATIVE); SPECIFIC GRAVITY URINE 1.014 (1.005-1.030)
[2021-08-29] MEDS: DILTIAZEM HCL 125 MG in DEXT 5% WATER 100 ML IV PRN (14:16)
[2021-08-29] MEDS: MIDODRINE HCL 5MG TABLET PO SCH (16:01)
[2021-08-29] MEDS: FLUCONAZOLE 100MG TABLET PO SCH (16:01)
[2021-08-29] MEDS: NOREPINEPHRINE 32 MG in DEXT 5% WATER 218 ML IV PRN (17:49)
[2021-08-29] MEDS ORDERED: VANCOMYCIN 500 MG PREMIX 100 ML IV SCH (21:00)
[2021-08-29] MEDS ORDERED: ENOXAPARIN 80MG/0.8ML SYR SUBCUT SCH (21:00)
[2021-08-30] VITALS (100 sets, daily range): BP systolic 68–149; BP diastolic 35–63
[2021-08-30] MEDS: ACETYLCYSTEINE 100MG/ML 10% VIAL 4ML INH SCH ×4 (00:18→20:56)
[2021-08-30] MEDS: IPRATROPIUM/ALBUTEROL 0.5-3(2.5)MG/3ML NEB HHN SCH ×5 (00:18→20:57)
[2021-08-30] MEDS: MEROPENEM 1,000 MG in SODIUM CHLORIDE 0.9% 100 ML IV SCH ×3 (01:19→16:25)
[2021-08-30] MEDS: DEXT 5%/0.45% NACL 1000ML 1,000 ML IV SCH ×2 (01:19→08:23)
[2021-08-30 05:39] LABS: HEMATOCRIT. 24.1 % (36.0-48.0); HEMOGLOBIN. 7.3 g/dL (12.0-16.0); MEAN CORPUSCULAR HEMOGLOBIN 25.6 pg (28.0-32.0); MEAN CORPUSCULAR VOLUME 84.5 fL (81.0-99.0); MEAN PLATELET VOLUME 9.2 fl (7.4-10.4); PLATELET 139 x1000/uL (130-400); RED BLOOD CELL COUNT 2.85 mill/uL (4.2-5.4); RED CELL DISTRIBUTION WIDTH 20.6 % (11.6-14.6)
[2021-08-30] MEDS: LEVOTHYROXINE SODIUM 100MCG TABLET PO SCH (06:44)
[2021-08-30 06:49] LABS: INR 3.1
[2021-08-30] MEDS: FLUCONAZOLE 100MG TABLET PO SCH (08:22)
[2021-08-30] MEDS: FUROSEMIDE 40MG/4ML VIAL IVP SCH (08:23)
[2021-08-30] MEDS: PANTOPRAZOLE SODIUM 40 MG/VIAL IV SCH (08:23)
[2021-08-30] MEDS: MIDODRINE HCL 5MG TABLET PO SCH ×3 (08:23→16:25)
[2021-08-30 09:49] LABS: BG BASE EXCESS -8.1 mmol/L (-2.0-2.0); BG CARBOXYHEMOGLOBIN 0.3 % (0.5-1.5); BG DEOXYHEMOGLOBIN 0.9 % (0.0-5.0); BG FRACTION INSPIRED OXYGEN 80; BG HCO3 ACT 16.8 mmol/L (22.0-26.0); BG METHEMOGLOBIN 0.1 % (0.0-1.5); BG OXYGEN SATURATION 99.1 % (92.0-98.5); BG OXYHEMOGLOBIN 98.7 % (94.0-97.0); BG PCO2 31.9 mmHg (35.0-45.0); BG SAMPLE SITE RIGHT RADIAL; BG TOTAL HEMOGLOBIN 7.7 g/dL (12.0-18.0); BG VENT MODE VENT - AC
[2021-08-30 09:51] LABS: NUCLEATED RED BLOOD CELLS 4 /100 WBC
[2021-08-30 09:52] LABS: PLATELET ESTIMATE NORMAL
[2021-08-31] VITALS (75 sets, daily range): BP systolic 53–154; BP diastolic 27–91
[2021-08-31] MEDS: IPRATROPIUM/ALBUTEROL 0.5-3(2.5)MG/3ML NEB HHN SCH ×4 (00:18→12:00)
[2021-08-31] MEDS: MEROPENEM 1,000 MG in SODIUM CHLORIDE 0.9% 100 ML IV SCH (01:02)
[2021-08-31] MEDS: DEXT 5%/0.45% NACL 1000ML 1,000 ML IV SCH ×2 (01:02→10:51)
[2021-08-31 05:39] LABS: HEMATOCRIT. 21.7 % (36.0-48.0); MEAN CORPUSCULAR HEMOGLOBIN 25.7 pg (28.0-32.0); MEAN CORPUSCULAR VOLUME 81.9 fL (81.0-99.0); MEAN PLATELET VOLUME 9.4 fl (7.4-10.4); PLATELET 114 x1000/uL (130-400); RED BLOOD CELL COUNT 2.64 mill/uL (4.2-5.4); RED CELL DISTRIBUTION WIDTH 20.6 % (11.6-14.6)
[2021-08-31 05:48] LABS: HEMOGLOBIN. 6.8 g/dL (12.0-16.0)
[2021-08-31] MEDS: LEVOTHYROXINE SODIUM 100MCG TABLET PO SCH (07:02)
[2021-08-31] MEDS ORDERED: VANCOMYCIN 750 MG PREMIX 150 ML IV SCH (08:00)
[2021-08-31 08:14] LABS: BG BASE EXCESS -6.7 mmol/L (-2.0-2.0); BG CARBOXYHEMOGLOBIN 0.1 % (0.5-1.5); BG DEOXYHEMOGLOBIN 1.7 % (0.0-5.0); BG FRACTION INSPIRED OXYGEN 60; BG HCO3 ACT 16.5 mmol/L (22.0-26.0); BG METHEMOGLOBIN 0.5 % (0.0-1.5); BG OXYGEN SATURATION 98.3 % (92.0-98.5); BG OXYHEMOGLOBIN 97.7 % (94.0-97.0); BG PCO2 24.7 mmHg (35.0-45.0); BG PH 7.443 (7.350-7.450); BG PO2 137.2 mmHg (75.0-100.0); BG TOTAL HEMOGLOBIN 7.3 g/dL (12.0-18.0); BG VENT MODE VENT - AC
[2021-08-31] MEDS: ACETYLCYSTEINE 100MG/ML 10% VIAL 4ML INH SCH (08:16)
[2021-08-31 08:26] LABS: NUCLEATED RED BLOOD CELLS 1 /100 WBC; PLATELET ESTIMATE SLIGHTLY DECREASED
[2021-08-31] MEDS: FLUCONAZOLE 100MG TABLET PO SCH (09:27)
[2021-08-31] MEDS: MIDODRINE HCL 5MG TABLET PO SCH ×3 (09:27→17:00)
[2021-08-31] MEDS: PANTOPRAZOLE SODIUM 40 MG/VIAL IV SCH (09:27)
[2021-08-31] MEDS: FUROSEMIDE 40MG/4ML VIAL IVP SCH (09:27)
[2021-08-31] MEDS ORDERED: MAGNESIUM 2 G PREMIX 50 ML IV SCH (10:00)
[2021-08-31] MEDS ORDERED: MEROPENEM 500MG in NORMAL SALINE 50ML IV SCH (12:00)
[2021-08-31] MEDS ORDERED: MORPHINE SULFATE 250 MG in DEXT 5% WATER 225 ML IV PRN (12:30)
[2021-09-01] MEDS ORDERED: ZINC SULFATE 220 MG ( 50 ) CAPSULE PO SCH (09:00)
[2021-09-01] MEDS ORDERED: ASCORBIC ACID 500 MG TABLET PO SCH (09:00)
== END 2021-08-31 18:57 | DRG 564 ==
LOC: ER 22:03 → MICUSO 08-28 03:17 → EDBEDREQTM 08-28 03:32 → EDBEDREQ 08-28 03:32 → MICUSO 08-29 13:17
PROVIDERS: ADMIT Internal Medicine; ATTEND Internal Medicine
PROC: 5A1945Z Respiratory Ventilation, 24-96 Consecutive Hours (ICD-10-PCS; principal; 2021-08-28)
PROC: 0BH17EZ Insertion of Endotracheal Airway into Trachea, Via Natural or Artificial Opening (ICD-10-PCS; 2021-08-28)
PROC: 5A12012 Performance of Cardiac Output, Single, Manual (ICD-10-PCS; 2021-08-28)
DX: T87.44 Infection of amputation stump, left lower extremity (principal); L89.513 Pressure ulcer of right ankle, stage 3; A41.9 Sepsis, unspecified organism; G92.8 Other toxic encephalopathy; I50.33 Acute on chronic diastolic (congestive) heart failure; J18.9 Pneumonia, unspecified organism; J96.01 Acute respiratory failure with hypoxia; K72.00 Acute and subacute hepatic failure without coma; N17.0 Acute kidney failure with tubular necrosis; R65.21 Severe sepsis with septic shock; E43 Unspecified severe protein-calorie malnutrition; I21.A1 Myocardial infarction type 2; J96.02 Acute respiratory failure with hypercapnia; I48.20 Chronic atrial fibrillation, unspecified; J44.0 Chronic obstructive pulmonary disease with (acute) lower respiratory infection; M86.9 Osteomyelitis, unspecified; N39.0 Urinary tract infection, site not specified; E87.0 Hyperosmolality and hypernatremia; Z99.11 Dependence on respirator [ventilator] status; Z16.12 Extended spectrum beta lactamase (ESBL) resistance; J30.9 Allergic rhinitis, unspecified; I27.81 Cor pulmonale (chronic); D63.8 Anemia in other chronic diseases classified elsewhere; E11.40 Type 2 diabetes mellitus with diabetic neuropathy, unspecified; D69.6 Thrombocytopenia, unspecified; E03.9 Hypothyroidism, unspecified; E11.69 Type 2 diabetes mellitus with other specified complication; E78.00 Pure hypercholesterolemia, unspecified; E78.5 Hyperlipidemia, unspecified; E86.1 Hypovolemia; F03.90 Unspecified dementia, unspecified severity, without behavioral disturbance, psychotic disturbance, mood disturbance, and anxiety; E05.90 Thyrotoxicosis, unspecified without thyrotoxic crisis or storm; I11.0 Hypertensive heart disease with heart failure; I25.10 Atherosclerotic heart disease of native coronary artery without angina pectoris; I08.3 Combined rheumatic disorders of mitral, aortic and tricuspid valves; E11.51 Type 2 diabetes mellitus with diabetic peripheral angiopathy without gangrene; S90.414A Abrasion, right lesser toe(s), initial encounter; X58.XXXA Exposure to other specified factors, initial encounter; I87.2 Venous insufficiency (chronic) (peripheral); Y83.5 Amputation of limb(s) as the cause of abnormal reaction of the patient, or of later complication, without mention of misadventure at the time of the procedure; L89.156 Pressure-induced deep tissue damage of sacral region; L89.216 Pressure-induced deep tissue damage of right hip; Z20.822 Contact with and (suspected) exposure to COVID-19; Z79.01 Long term (current) use of anticoagulants; Z82.49 Family history of ischemic heart disease and other diseases of the circulatory system; Z87.19 Personal history of other diseases of the digestive system; Z89.612 Acquired absence of left leg above knee; Z90.710 Acquired absence of both cervix and uterus; Z88.0 Allergy status to penicillin; Z88.8 Allergy status to other drugs, medicaments and biological substances; Z79.82 Long term (current) use of aspirin; Z79.899 Other long term (current) drug therapy; Y93.89 Activity, other specified; Y92.89 Other specified places as the place of occurrence of the external cause; Y99.8 Other external cause status
CPT/HCPCS: 36415; 36600; 71045; 71250; 73552; 74176; 80048; 80053; 80202; 81003; 82040; 82248; 82375; 82550; 82553; 82805; 83036; 83605; 83735; 83880; 84100; 84134; 84145; 84484; 85025; 86850; 86900; 87106; 87426; 87804; 93005; 93306; 93970; 94002; 94003; 94640; 94667; 97161; 99291; C9113; J0330; J1650; J1940; J2185; J2250; J2405; J3010; J3370; J3475; J3490; J7040; J7050; J7060; J7608